=== PATIENT | male | born 1965 | race Hispanic/Latino ===

== ENCOUNTER 2017-10-14 10:40 | Inpatient (IN) | payer SELFPAY ==
--- NOTE | 2017-10-14 11:42 | RAD ---
PA AND LATERAL CHEST: Date: 10/14/17 HISTORY: Cough and congestion since Saturday. FINDINGS: There are mild increased interstitial densities within the lungs bilaterally, greater at each lung ba se, which may be related to infectious process. Mild asymmetric pulmonary edema is a differential con sideration, although is thought less likely. Cardiac silhouette and pulmonary vasculature are within normal limits. Osseous structures are intact. IMPRESSION: Increased interstitial densities bilaterally, greater at each lung base, which may be related to infe ctious process. Mild asymmetric pulmonary edema is a differential consideration. POS: ALEXEY
[2017-10-14 11:51] LABS: #Eosinphils 0.1 thou/uL (0.0-0.7); #Monocytes 0.6 thou/uL (0.11-0.59); #Neutrophils 3.8 thou/uL (1.40-6.50); %Basophils 0.1 % (0.0-1.0); %Eosinophils 1.4 % (0.0-10.0); %Lymphocytes 18.7 % (21.0-51.0); %Monocytes 10.4 % (0.0-10.0); %Neutrophils 69.5 % (42.0-75.0); Hemoglobin 13.4 g/dL (14.0-18.0); Mean Corpuscular HGB CONC 33.1 g/dL (32.0-36.0); Mean Corpuscular Hemoglobin 28.7 pg (27.0-31.0); Mean Corpuscular Volume 86.7 fl (80.0-94.0); Mean Platelet Volume 8.6 fL (7.4-10.4); Platelet Count 193 thou/uL (130-400); RBC Distribution Width 13.3 % (11.5-14.5); Red Blood Cell (RBC) Count 4.67 mill/uL (4.70-6.10); White Blood Cell (WBC) Count 5.5 thou/uL (4.8-10.8)
[2017-10-14 12:04] LABS: ALT (SGPT) 23 U/L (8-55); AST (SGOT) 44 U/L (5-34); Albumin 3.7 g/dL (3.5-5.0); Alkaline Phosphatase 73 U/L (40-150); Anion Gap 13 mmol/L (10-20); BUN (Urea Nitrogen) 22 mg/dL (8.9-20.6); Bilirubin, Total 0.5 mg/dL (0.2-1.2); Calc. Creatinine Clearance 0 mL/min (70-130); Carbon Dioxide 22 mmol/L (22-29); Chloride 103 mmol/L (98-107); Estimated GFR-MDRD Greater than 90; Globulin 4.2 g/dL (2.4-3.5); Glucose 96 mg/dL (70-105); Protein, Total 7.9 g/dL (6.0-8.3); Sodium 134 mmol/L (136-145)
[2017-10-14] MEDS ORDERED: cefTRIAXone\\ROCEPHIN 2 GM in Sodium Chloride 0.9% 100 ML IVPB ONE (12:15)
[2017-10-14] MEDS ORDERED: Azithromycin 500 MG in Sodium Chloride 0.9% 250 ML 250 ML IVPB ONE (12:30)
--- NOTE | 2017-10-14 14:07 | HP ---
PRIMARY CARE PHYSICIAN: [facility]. REASON FOR ADMISSION: Pneumonia, hypoxia, and sepsis. HISTORY OF PRESENT ILLNESS: A 52-year-old male with no significant medical history, who is sick for last 5 days. All symptoms started with upper respiratory infection with runny nose, nasal c ongestion, sore throat, and cough productive of scant amount of white sputum. The patient was trying over the counter medication without any help and that is why he saw primary care physician at the [facility], who prescribed him Phenergan with codeine and Tessalon for considering viral infect ion, but patient was not improving and day by day condition was getting worse. Last night, he was hooks ving tachypnea. He was having fever and increasing amount of cough. He was feeling very weak and th at is why he decided to go to the emergency room for evaluation. In the emergency room, this patient was tachycardic, tachypneic, and febrile. He was meeting sepsis criteria. He had chest x-ray, whic h showed bibasilar infiltration more on the bedside. The patient's oxygen saturation was 86% to 90% on room air and that is why he required oxygen and with oxygen saturation improved to 95%. At this p oint, we are admitting this patient in the hospital for further treatment. He denies any pleuritic c hest pain. He denies any UTI symptoms. He denies any hemoptysis. He denies any lower extremity jeaneth ma or calf tenderness. He denies any recent travel or sick exposure. REVIEW OF SYSTEMS: The following complete review of systems was negative, unless otherwise mentioned in the HPI or below: Constitutional: Weight loss or gain, ability to conduct usual activities. Skin: Rash, itching. Eyes: Double vision, pain. ENT/Mouth: Nose bleeding, neck stiffness, pain, tenderness. Cardiovascular: Palpitations, dyspnea on exertion, orthopnea. Respiratory: Shortness of breath, whee zing, cough, hemoptysis, fever or night sweats. Gastrointestinal: Poor appetite, abdominal pain, hea rtburn, nausea, vomiting, constipation, or diarrhea. Genitourinary: Urgency, frequency, dysuria, noc turia. Musculoskeletal: Pain, swelling. Neurologic/Psychiatric: Anxiety, depression. Allergy/Immun ologic: Skin rash, bleeding tendency. Please see my HPI for pertinent positive and negative. All other review of systems reviewed and nega tive except as mentioned in the HPI. ALLERGIES: No known drug allergy. CURRENT HOME MEDICATIONS: Phenergan with Codeine cough syrup, Tessalon Perles for cough which the juliana shital's primary care physician prescribed recently. PAST MEDICAL HISTORY: Reviewed and negative. PAST SURGICAL HISTORY: Reviewed and negative. PAST PSYCHIATRIC HISTORY: Reviewed and negative. SOCIAL HISTORY: Patient lives at home. No history of tobacco, alcohol, or illicit drug abuse. FAMILY HISTORY: No strong family history of premature coronary artery disease, stroke or cancer. EMERGENCY ROOM COURSE: Patient is given IV fluid 2 liter, DuoNeb therapy, Rocephin, and azithromycin . PHYSICAL EXAMINATION: VITAL SIGNS: On arrival, blood pressure 131/93, pulse 112, respiratory rate 32, saturation 89% on ro om air, temperature 100.3. Weight 81.6 kilograms. GENERAL: Patient is currently alert, awake, no obvious acute distress, tachycardic, tachypneic. HEENT: Head is normocephalic, atraumatic. Eyes: Pupils round, reactive to light. Extraocular musc le intact. ENT: Oropharynx within normal limit. Moist mucous membranes. No oral lesion, no pharyngeal erythem a, no exudate. NECK: Supple, no JVD, no thyromegaly, no carotid bruit, no jugular venous distention. LUNGS: Bibasilar rales noted. Air entry reduced basally. No accessory muscles of respiration in us e. CARDIAC: S1 and S2 regular, tachycardia, no murmur, no gallop, no rub. ABDOMEN: Soft, bowel sounds present, nontender, nondistended. No organomegaly, no mass, no suprapub ic tenderness. BACK: Unremarkable, no CVA tenderness. EXTREMITIES: Upper extremity passive movement of all joints are normal. Lower extremities: No yoanna a, no calf tenderness. Good peripheral pulsation. SKIN: No skin rash. HEMATOLOGICAL: No lymphadenopathy. PSYCHIATRIC: Normal affect. NEUROLOGIC: Nonfocal examination. The patient moves all 4 limbs. Plantar bilateral flexor. SIGNIFICANT LABORATORY DATA: gambling monitor showing sinus tachycardia. Chest x-ray based on my r eview, bilateral interstitial density consistent with an infectious process. CBC: WBC 5.5, hemoglob in 13.4, platelet 193. BMP: Sodium 134, potassium 4.0, chloride 103, carbon dioxide 22, anion gap 1 3, BUN 22, creatinine 0.78, glucose 96, calcium 9.0. LFT: Protein 7.9, albumin 3.7, AST 44, ALT 23, alkaline phosphatase 73. Lactic acid 0.9. ASSESSMENT AND PLAN: 1. Community-acquired bacterial pneumonia. Patient has bibasilar infiltration, bibasilar rales, fev er, and sepsis criteria. He has upper respiratory infection followed by pneumonia. Currently influe nza screen is negative. We are suspecting a postviral pneumonia with secondary to bacterial infectio n. We will treat with Rocephin 2 gram IV daily, azithromycin 500 mg IV daily. We will also give him Solu-Medrol 40 mg IV q.8 hourly x3 doses, DuoNeb therapy q.6 hourly p.r.n. basis, and Mucinex 600 mg 3 times daily. 2. Acute hypoxic respiratory failure secondary to problem #1. We will monitor oxygen saturation and wean off oxygen as needed basis. 3. Sepsis with acute organ dysfunction. This patient meeting sepsis criteria with hypoxic respirato ry failure. In this way, he has sepsis with acute organ dysfunction. We will continue with Rocephin and azithromycin as above. We will also continue with IV fluid. 4. Deep venous thrombosis prophylaxis. Lovenox 40 mg subcu daily. 5. Gastrointestinal prophylaxis, Pepcid 20 mg p.o. b.i.d. 6. Code status: The patient is FULL CODE. The patient does not have any surrogate decision maker. Disposition plan based on clinical course. We are expecting patient's stay in hospital more than 2 m idnights. Plan of care discussed with the patient in detail and answered all of his questions.
[2017-10-14] MEDS ORDERED: Ondansetron HCl/PF 4 MG/2 ML Vial IVP PRN ×2 (14:39→14:41)
[2017-10-14] MEDS ORDERED: Ondansetron ODT 4 MG TAB PO PRN ×2 (14:39→14:41)
[2017-10-14] MEDS ORDERED: Chloraseptic Spray 180 ml Bottle PO PRN (14:41)
[2017-10-14] MEDS ORDERED: Milk Of Magnesia 30 ML UDCUP PO PRN (14:41)
[2017-10-14] MEDS ORDERED: cloNIDine 0.1 MG TAB PO PRN (14:41)
[2017-10-14] MEDS ORDERED: Senokot 8.6 MG TAB PO PRN (14:41)
[2017-10-14] MEDS ORDERED: Loperamide HCl 2 MG CAP PO PRN (14:41)
[2017-10-14] MEDS ORDERED: Acetaminophen 325 MG TAB PO PRN (14:41)
[2017-10-14] MEDS ORDERED: Loratadine 10 MG TAB PO PRN (14:41)
[2017-10-14] MEDS ORDERED: Benzonatate 100 MG CAP PO PRN (14:41)
[2017-10-14] MEDS ORDERED: Zolpidem Tartrate 5 MG TAB PO PRN (14:41)
[2017-10-14] MEDS ORDERED: HYDROcodone/Acetaminophen 5/325 mg Tablet PO PRN (14:41)
[2017-10-14] MEDS ORDERED: Diabetic Tussin 200 MG/10 ML UDCUP PO PRN (14:41)
[2017-10-14] MEDS ORDERED: Mag-Al 1200 mg/1200 mg/30 ML UDCUP PO PRN (14:41)
[2017-10-14] MEDS ORDERED: Sodium Chloride 0.65% Nasal 44 ML BOT EA NARE PRN (14:41)
[2017-10-14] MEDS ORDERED: Labetalol HCl 100 MG/20 ML VIAL SLOW IVP PRN (14:41)
[2017-10-14] MEDS ORDERED: Eucerin (Mineral Oil/Petrolatum,White) 30 gm Jar TOP PRN (14:41)
[2017-10-14] MEDS ORDERED: Artificial Tear Sol 15 ML BOT EA EYE PRN (14:41)
[2017-10-14 14:54] VITALS: BMI 21.8
[2017-10-14] MEDS: Sodium Chloride 0.9% 1,000 ML IV SCH ×5 (15:31→23:29)
[2017-10-14] MEDS: guaiFENesin ER 600 MG TAB PO SCH (20:00)
[2017-10-14] MEDS: Famotidine 20 MG TAB PO SCH (20:00)
[2017-10-14 20:18] LABS: Bilirubin Negative (Negative); Blood, Urine Negative (Negative); Clarity CLEAR (Clear); Glucose, Urine (Dipstick) Negative (Negative); Leukocyte Negative (Negative); Nitrite Negative (Negative); Protein, Urine (Dipstick) Negative (Neg-Trace); Specific Gravity, Urine 1.014 (1.002-1.036); pH, Urine 6.5 (5.0-9.0)
[2017-10-14 20:20] LABS: Bacteria/HPF None Seen HPF (None Seen); Hyaline Casts/LPF 0-3 HYALINE CAST LPF (0-3 Hyaline); RBC/HPF 0-3 HPF (0-3); Squamous Epithelial None Seen HPF (0-3); WBC/HPF None Seen HPF (0-3)
[2017-10-14] MEDS ORDERED: FLU VACC QS2017-18 36 mo. & older 0.5 ML SYRINGE IM ONE (21:00)
[2017-10-15 06:04] LABS: ALT (SGPT) 19 U/L (8-55); AST (SGOT) 35 U/L (5-34); Albumin 3.2 g/dL (3.5-5.0); Alkaline Phosphatase 65 U/L (40-150); Anion Gap 10 mmol/L (10-20); BUN (Urea Nitrogen) 14 mg/dL (8.9-20.6); Bilirubin, Total 0.3 mg/dL (0.2-1.2); Calc. Creatinine Clearance 123 mL/min (70-130); Calcium 8.2 mg/dL (7.8-10.44); Carbon Dioxide 22 mmol/L (22-29); Chloride 105 mmol/L (98-107); Estimated GFR-MDRD Greater than 90; Globulin 3.7 g/dL (2.4-3.5); Glucose 131 mg/dL (70-105); Protein, Total 6.9 g/dL (6.0-8.3); Sodium 133 mmol/L (136-145)
[2017-10-15 06:18] LABS: #Lymphocytes 0.5 thou/uL (1.20-3.40); #Monocytes 0.1 thou/uL (0.11-0.59); #Neutrophils 1.6 thou/uL (1.40-6.50); %Eosinophils 0.2 % (0.0-10.0); %Lymphocytes 24.2 % (21.0-51.0); %Monocytes 2.6 % (0.0-10.0); %Neutrophils 73.1 % (42.0-75.0); Hemoglobin 11.6 g/dL (14.0-18.0); Mean Corpuscular HGB CONC 32.6 g/dL (32.0-36.0); Mean Corpuscular Hemoglobin 29.2 pg (27.0-31.0); Mean Corpuscular Volume 89.7 fl (80.0-94.0); Platelet Count 181 thou/uL (130-400); RBC Distribution Width 13.2 % (11.5-14.5); Red Blood Cell (RBC) Count 3.96 mill/uL (4.70-6.10); White Blood Cell (WBC) Count 2.2 thou/uL (4.8-10.8)
[2017-10-15] MEDS: Enoxaparin Sodium 40 MG/0.4 ML SYRINGE SC SCH (08:24)
[2017-10-15] MEDS: Famotidine 20 MG TAB PO SCH ×2 (08:26→19:54)
[2017-10-15] MEDS: guaiFENesin ER 600 MG TAB PO SCH ×2 (08:26→19:54)
[2017-10-15] MEDS: Sodium Chloride 0.9% 1,000 ML IV SCH ×2 (08:27→19:54)
--- NOTE | 2017-10-15 11:54 | PDOC.PN ---
- Subjective Encounter Start Date: 10/15/17 Encounter Start Time: 09:15 -: old records requested/rev Patient seen and examined. No new complaints. No overnight events pt feels better today, no fever - Objective Resuscitation Status: Resuscitation Status FULL:Full Resuscitation MAR Reviewed: Yes Vital Signs & Weight: Vital Signs (12 hours) Temp Pulse Resp BP Pulse Ox 10/15/17 08:00 98.0 F 91 18 137/78 92 L 10/15/17 05:00 109 H 10/15/17 04:00 98.2 F 117 H 18 117/65 95 10/15/17 00:00 98.7 F 109 H 22 H 136/87 93 L Weight Weight 143 lb 6.4 oz I&O: 10/14/17 10/15/17 10/16/17 06:59 06:59 06:59 Intake Total 1650 Balance 1650 Result Diagrams: 10/15/17 04:39 10/15/17 04:39 Phys Exam - Physical Examination Constitutional: NAD HEENT: PERRLA, moist MMs, sclera anicteric Neck: no JVD, supple Respiratory: no wheezing, no rhonchi few rales, Cardiovascular: RRR, no significant murmur, no rub Gastrointestinal: soft, non-tender, no distention, positive bowel sounds Musculoskeletal: no edema, pulses present Neurological: non-focal, normal sensation Psychiatric: normal affect, A&O x 3 Skin: no rash, normal turgor Dx/Plan (1) Acute respiratory failure with hypoxia Code(s): J96.01 - ACUTE RESPIRATORY FAILURE WITH HYPOXIA Status: Acute (2) Community acquired bacterial pneumonia Code(s): J15.9 - UNSPECIFIED BACTERIAL PNEUMONIA Status: Acute (3) Sepsis with acute organ dysfunction Code(s): A41.9 - SEPSIS, UNSPECIFIED ORGANISM; R65.20 - SEVERE SEPSIS WITHOUT SEPTIC SHOCK Status: Acute - Plan cont current plan of care, continue antibiotics, respiratory therapy * continue rocephin and azithromycin * follow culture * today wean off oxygen * ambulate as tolerated * medication reviewed as below * symptomatic treatment. Review of Systems - Review of Systems Constitutional: negative: fever, chills, sweats, weakness, malaise, other ENT: negative: Ear Pain, Ear Discharge, Nose Pain, Nose Discharge, Nose Congestion, Mouth Pain, Mouth Swelling, Throat Pain, Throat Swelling, Other Respiratory: Cough. negative: Dry, Shortness of Breath, Hemoptysis, SOB with Excertion, Pleuritic Pain, Sputum, Wheezing Cardiovascular: negative: chest pain, palpitations, orthopnea, paroxysmal nocturnal dyspnea, edema, light headedness, other Gastrointestinal: negative: Nausea, Vomiting, Abdominal Pain, Diarrhea, Constipation, Melena, Hematochezia, Other Genitourinary: negative: Dysuria, Frequency, Incontinence, Hematuria, Retention , Other Musculoskeletal: negative: Neck Pain, Shoulder Pain, Arm Pain, Back Pain, Hand Pain, Leg Pain, Foot Pain, Other Skin: negative: Rash, Lesions, Damon, Bruising, Other - Medications/Allergies Allergies/Adverse Reactions: Allergies Allergy/AdvReac Type Severity Reaction Status Date / Time No Known Allergies Allergy Verified 10/14/17 14:52 Medications: Current Medications Acetaminophen (Tylenol) 650 mg PO Q4H PRN PRN Reason: Headache/Fever or Pain Last Admin: 10/15/17 05:35 Dose: 650 mg Hydrocodone Bitart/Acetaminophen ([place] 5/325) 1 tab PO Q4H PRN PRN Reason: Moderate Pain (4-6) Al Hydroxide/Mg Hydroxide (Maalox) 30 ml PO Q6H PRN PRN Reason: Heartburn or Indigestion Albuterol/Ipratropium (Duoneb) 3 ml NEB [id number] PRN PRN Reason: SOB &/or Wheezing Artificial Tears (Tears Renewed 15ml Bottle) 0 drop EA EYE PRN PRN PRN Reason: Dry Eyes Benzonatate (Tessalon) 100 mg PO Q4H PRN PRN Reason: Cough Clonidine (Catapres) 0.1 mg PO Q4H PRN PRN Reason: Systolic BP > 180 Enoxaparin Sodium (Lovenox) 40 mg SC 0900 [facility] Last Admin: 10/15/17 08:24 Dose: 40 mg Famotidine (Pepcid) 20 mg PO BID [facility] Last Admin: 10/15/17 08:26 Dose: 20 mg Guaifenesin (Robitussin Sf) 200 mg PO Q4H PRN PRN Reason: Cough Guaifenesin (Mucinex) 600 mg PO Q12HR [facility] Last Admin: 10/15/17 08:26 Dose: 600 mg Azithromycin 500 mg/ Sodium (Chloride) 250 mls @ 250 mls/hr IVPB Q24HR@1400 [facility] Ceftriaxone Sodium 2 gm/ (Sodium Chloride) 100 mls @ 200 mls/hr IVPB Q24HR@ 1300 [facility] Sodium Chloride (Normal Saline 0.9%) 1,000 mls @ 100 mls/hr IV .Q10H [facility] Last Admin: 10/15/17 08:27 Dose: 1,000 mls Labetalol HCl (Normodyne) 10 mg SLOW IVP Q4H PRN PRN Reason: Systolic BP > 180 Loperamide HCl (Imodium) 2 mg PO PRN PRN PRN Reason: Diarrhea/Loose Stools Loratadine (Claritin) 10 mg PO DAILYPRN PRN PRN Reason: Sinus Symptoms Magnesium Hydroxide (Milk Of Magnesium) 30 ml PO DAILYPRN PRN PRN Reason: Constipation Methylprednisolone Sodium Succinate (Solu-Medrol) 40 mg IVP Q6HR [facility] Stop: 10/15/17 12:01 Last Admin: 10/15/17 05:32 Dose: 40 mg Mineral Oil/White Petrolatum (Eucerin Cream) 0 gm TOP BIDPRN PRN PRN Reason: Dry Skin Ondansetron HCl (Zofran Odt) 4 mg PO Q6H PRN PRN Reason: Nausea/Vomiting Ondansetron HCl (Zofran) 4 mg IVP Q6H PRN PRN Reason: Nausea/Vomiting Phenol (Chloraseptic [place] 180 Ml Bot) 0 ml PO PRN PRN PRN Reason: Sore Throat Senna (Senokot) 2 tab PO HSPRN PRN PRN Reason: Constipation Sodium Chloride (Flush - Normal Saline) 10 ml IVF Q12HR [facility] Last Admin: 10/15/17 08:26 Dose: Not Given Sodium Chloride (Flush - Normal Saline) 10 ml IVF PRN PRN PRN Reason: Saline Flush Sodium Chloride ([place] Nasal [place] 0.65%) 0 ml EA NARE QIDPRN PRN PRN Reason: Nasal Congestion Zolpidem Tartrate (Ambien) 5 mg PO HSPRN PRN PRN Reason: Insomnia
[2017-10-15] MEDS: cefTRIAXone\\ROCEPHIN 2 GM in Sodium Chloride 0.9% 100 ML IVPB SCH (12:24)
[2017-10-15] MEDS ORDERED: Azithromycin 500 MG in Sodium Chloride 0.9% 250 ML 250 ML IVPB SCH (14:00)
[2017-10-16] MEDS: Sodium Chloride 0.9% 1,000 ML IV SCH (05:09)
[2017-10-16 08:01] VITALS: BP 128/78; TEMP 98.1
[2017-10-16] MEDS: Famotidine 20 MG TAB PO SCH (09:14)
[2017-10-16] MEDS: guaiFENesin ER 600 MG TAB PO SCH (09:14)
[2017-10-16] MEDS: Enoxaparin Sodium 40 MG/0.4 ML SYRINGE SC SCH (09:15)
--- NOTE | 2017-10-16 10:48 | PDOC.PN ---
- Subjective Encounter Start Date: 10/16/17 Encounter Start Time: 10:00 Patient seen and examined. No new complaints. No overnight events - Objective Resuscitation Status: Resuscitation Status FULL:Full Resuscitation MAR Reviewed: Yes Vital Signs & Weight: Vital Signs (12 hours) Temp Pulse Resp BP Pulse Ox 10/16/17 08:01 98.1 F 87 16 128/78 93 L 10/16/17 08:00 98.1 F 87 16 10/16/17 04:00 97.8 F 89 16 128/77 94 L 10/16/17 02:26 98 10/16/17 01:19 97.8 F 94 16 126/70 92 L Weight Weight 143 lb 6.4 oz I&O: 10/15/17 10/16/17 10/17/17 06:59 06:59 06:59 Intake Total 1650 1027 Output Total 840 Balance 1650 187 Result Diagrams: 10/15/17 04:39 10/15/17 04:39 Phys Exam - Physical Examination Constitutional: NAD HEENT: PERRLA, moist MMs, sclera anicteric Neck: no JVD, supple Respiratory: no wheezing, no rales, no rhonchi Cardiovascular: RRR, no significant murmur, no rub Gastrointestinal: soft, non-tender, no distention, positive bowel sounds Musculoskeletal: no edema, pulses present Neurological: non-focal, normal sensation, moves all 4 limbs Psychiatric: normal affect, A&O x 3 Skin: no rash, normal turgor Dx/Plan (1) Acute respiratory failure with hypoxia Code(s): J96.01 - ACUTE RESPIRATORY FAILURE WITH HYPOXIA Status: Acute (2) Community acquired bacterial pneumonia Code(s): J15.9 - UNSPECIFIED BACTERIAL PNEUMONIA Status: Acute (3) Sepsis with acute organ dysfunction Code(s): A41.9 - SEPSIS, UNSPECIFIED ORGANISM; R65.20 - SEVERE SEPSIS WITHOUT SEPTIC SHOCK Status: Acute - Plan cont current plan of care, continue antibiotics * medication reviewed as below * symptomatic treatment * omnicef on discharge * see discharge summermateo. Review of Systems - Review of Systems Eyes: negative: Pain, Vision Change, Conjunctivae Inflammation, Eyelid Inflammation, Redness, Other ENT: negative: Ear Pain, Ear Discharge, Nose Pain, Nose Discharge, Nose Congestion, Mouth Pain, Mouth Swelling, Throat Pain, Throat Swelling, Other Respiratory: negative: Cough, Dry, Shortness of Breath, Hemoptysis, SOB with Excertion, Pleuritic Pain, Sputum, Wheezing Cardiovascular: negative: chest pain, palpitations, orthopnea, paroxysmal nocturnal dyspnea, edema, light headedness, other Gastrointestinal: negative: Nausea, Vomiting, Abdominal Pain, Diarrhea, Constipation, Melena, Hematochezia, Other Genitourinary: negative: Dysuria, Frequency, Incontinence, Hematuria, Retention , Other Musculoskeletal: negative: Neck Pain, Shoulder Pain, Arm Pain, Back Pain, Hand Pain, Leg Pain, Foot Pain, Other Skin: negative: Rash, Lesions, Damon, Bruising, Other - Medications/Allergies Allergies/Adverse Reactions: Allergies Allergy/AdvReac Type Severity Reaction Status Date / Time No Known Allergies Allergy Verified 10/14/17 14:52 Medications: Current Medications Acetaminophen (Tylenol) 650 mg PO Q4H PRN PRN Reason: Headache/Fever or Pain Last Admin: 10/15/17 05:35 Dose: 650 mg Hydrocodone Bitart/Acetaminophen ([place] 5/325) 1 tab PO Q4H PRN PRN Reason: Moderate Pain (4-6) Al Hydroxide/Mg Hydroxide (Maalox) 30 ml PO Q6H PRN PRN Reason: Heartburn or Indigestion Albuterol/Ipratropium (Duoneb) 3 ml NEB [id number] PRN PRN Reason: SOB &/or Wheezing Artificial Tears (Tears Renewed 15ml Bottle) 0 drop EA EYE PRN PRN PRN Reason: Dry Eyes Benzonatate (Tessalon) 100 mg PO Q4H PRN PRN Reason: Cough Clonidine (Catapres) 0.1 mg PO Q4H PRN PRN Reason: Systolic BP > 180 Enoxaparin Sodium (Lovenox) 40 mg SC 0900 [facility] Last Admin: 10/16/17 09:15 Dose: 40 mg Famotidine (Pepcid) 20 mg PO BID [facility] Last Admin: 10/16/17 09:14 Dose: 20 mg Guaifenesin (Robitussin Sf) 200 mg PO Q4H PRN PRN Reason: Cough Guaifenesin (Mucinex) 600 mg PO Q12HR [facility] Last Admin: 10/16/17 09:14 Dose: 600 mg Azithromycin 500 mg/ Sodium (Chloride) 250 mls @ 250 mls/hr IVPB Q24HR@1400 [facility] Last Admin: 10/15/17 15:57 Dose: 250 mls Ceftriaxone Sodium 2 gm/ (Sodium Chloride) 100 mls @ 200 mls/hr IVPB Q24HR@ 1300 [facility] Last Admin: 10/15/17 12:24 Dose: 100 mls Sodium Chloride (Normal Saline 0.9%) 1,000 mls @ 100 mls/hr IV .Q10H [facility] Last Admin: 10/16/17 05:09 Dose: 1,000 mls Labetalol HCl (Normodyne) 10 mg SLOW IVP Q4H PRN PRN Reason: Systolic BP > 180 Loperamide HCl (Imodium) 2 mg PO PRN PRN PRN Reason: Diarrhea/Loose Stools Loratadine (Claritin) 10 mg PO DAILYPRN PRN PRN Reason: Sinus Symptoms Magnesium Hydroxide (Milk Of Magnesium) 30 ml PO DAILYPRN PRN PRN Reason: Constipation Mineral Oil/White Petrolatum (Eucerin Cream) 0 gm TOP BIDPRN PRN PRN Reason: Dry Skin Ondansetron HCl (Zofran Odt) 4 mg PO Q6H PRN PRN Reason: Nausea/Vomiting Ondansetron HCl (Zofran) 4 mg IVP Q6H PRN PRN Reason: Nausea/Vomiting Phenol (Chloraseptic [place] 180 Ml Bot) 0 ml PO PRN PRN PRN Reason: Sore Throat Senna (Senokot) 2 tab PO HSPRN PRN PRN Reason: Constipation Sodium Chloride (Flush - Normal Saline) 10 ml IVF Q12HR [facility] Last Admin: 10/16/17 09:16 Dose: Not Given Sodium Chloride (Flush - Normal Saline) 10 ml IVF PRN PRN PRN Reason: Saline Flush Sodium Chloride ([place] Nasal [place] 0.65%) 0 ml EA NARE QIDPRN PRN PRN Reason: Nasal Congestion Zolpidem Tartrate (Ambien) 5 mg PO HSPRN PRN PRN Reason: Insomnia
--- NOTE | 2017-10-16 11:08 | DIS ---
DATE OF ADMISSION: 10/14/2017 DATE OF DISCHARGE: 10/16/2017 PRIMARY CARE PHYSICIAN: [facility] call admission. DISCHARGE DISPOSITION: Home. PRIMARY DISCHARGE DIAGNOSES: 1. Acute respiratory failure with hypoxia, resolved. 2. Sepsis with acute organ dysfunction, improved. 3. Community-acquired pneumonia. SECONDARY DISCHARGE DIAGNOSIS: None. PRIMARY PROCEDURE/OPERATION: None. RADIOLOGICAL INVESTIGATION: Chest x-ray showed bibasilar infiltration. SIGNIFICANT LABORATORY DATA: WBC 2.2, hemoglobin 11.6 and platelet 181. Sodium 133, potassium 4.0, BUN 14, creatinine 0.66, calcium 8.2, AST 435, ALT 19, alkaline phosphatase 65 and albumin 3.2. Urin alysis normal. Blood culture negative. Influenza negative. DISCHARGE MEDICATIONS: Omnicef 300 mg p.o. b.i.d. for 7 days. The patient is advised to continue Te ssalon and Phenergan with codeine cough syrup as needed basis. CONTRAINDICATIONS: None. CODE STATUS: FULL CODE. INPATIENT CONSULTANTS: None. ALLERGIES: No known drug allergy. DISCHARGE PLAN: Post hospital, the patient is instructed to follow up with primary care physician in 1 week and to have repeat chest x-ray for followup. HOSPITAL COURSE: A 52-year-old male who was having upper respiratory infection and subseque ntly his symptoms progressed to cough productive of scant amount of white sputum, fever, and chills. He was also having shortness of breath. He was sent to primary care physician and subsequently he w as directed to go to ER. He was hypoxic on arrival to the ER with 86% to 90% on room air. He was al so having fever. He was meeting sepsis criteria. He was admitted to medical floor. We gave him oxy gen upon admission, but subsequently by the time of discharge, he did not require any oxygen. We con tinued with Rocephin and azithromycin while in hospital. We also gave him steroid for 1 day. On dis charge, we changed to Omnicef for 7 more days. The patient is given symptomatic treatment while in h ospital. By the time of discharge, he is ambulatory, tolerating p.o. well on room air and hemodynami raymond stable. He is feeling perfectly fine and he also wants to go home today. All new medication prescriptions given to him. The patient is seen and examined at bedside today. Please see my progress note from today for furthe r detail.
[2017-10-16] MEDS: cefTRIAXone\\ROCEPHIN 2 GM in Sodium Chloride 0.9% 100 ML IVPB SCH (12:37)
== END 2017-10-16 13:28 | disposition home or self-care (01) | DRG 871 ==
LOC: ERS 10:40 → T4-B 13:09
PROVIDERS: ADMIT Internal Medicine; ATTEND Internal Medicine
DX: A41.9 Sepsis, unspecified organism (principal); J18.9 Pneumonia, unspecified organism; J96.01 Acute respiratory failure with hypoxia; R65.20 Severe sepsis without septic shock
CPT/HCPCS: 36415; 71046; 80053; 81001; 83605; 85025; 87040; 87804; 90471; 90682; 94640; 96361; 96365; 96367; A4216; G0008; J0456; J0696; J1650; J2920; J7050; J7620; Q2036

== ENCOUNTER 2017-12-23 13:19 | Inpatient (IN) | payer SELFPAY ==
[2017-12-23] MEDS ORDERED: Piperacillin/Tazobactam 3.375 GM VIAL ONE (13:50)
[2017-12-23 13:51] LABS: Hemoglobin 11.1 g/dL (14.0-18.0); Mean Corpuscular HGB CONC 34.7 g/dL (32.0-36.0); Mean Corpuscular Hemoglobin 29.1 pg (27.0-31.0); Mean Corpuscular Volume 83.9 fl (80.0-94.0); Mean Platelet Volume 9.1 fL (7.4-10.4); Platelet Count 212 thou/uL (130-400); RBC Distribution Width 13.7 % (11.5-14.5); Red Blood Cell (RBC) Count 3.81 mill/uL (4.70-6.10); White Blood Cell (WBC) Count 7.7 thou/uL (4.8-10.8)
[2017-12-23] MEDS ORDERED: Acetaminophen 500 MG TAB ONE (13:53)
[2017-12-23 13:58] LABS: Base Excess (BEa) -2.8 mEq/L (0 (+/-) 2.5); CO2 Tension 28.2 mmHg (35.0-45.0); Hematocrit-ABG 32.5 % (42.0-52.0); Hemoglobin (Hb) 9.4 g/dL (14.0-18.0); O2 Tension (PaO2) 128.4 mmHg (80.0-100.0); pH, Arterial 7.47 (7.35-7.45)
[2017-12-23 13:59] LABS: Analyzer IN Cardio ER; Calcium, Ionized 1.1 mmol/L (1.12-1.30); Puncture Site L.R.
[2017-12-23 14:01] LABS: ALT (SGPT) 38 U/L (8-55); AST (SGOT) 60 U/L (5-34); Albumin 2.9 g/dL (3.5-5.0); Alkaline Phosphatase 58 U/L (40-150); Anion Gap 14 mmol/L (10-20); BUN (Urea Nitrogen) 22 mg/dL (8.9-20.6); Bilirubin, Total 0.6 mg/dL (0.2-1.2); Calc. Creatinine Clearance 0 mL/min (70-130); Calcium 8.6 mg/dL (7.8-10.44); Carbon Dioxide 21 mmol/L (22-29); Chloride 93 mmol/L (98-107); Estimated GFR-MDRD 84; Globulin 3.8 g/dL (2.4-3.5); Glucose 115 mg/dL (70-105); Lipase 123 U/L (8-78); Protein, Total 6.7 g/dL (6.0-8.3); Sodium 124 mmol/L (136-145)
[2017-12-23 14:23] LABS: Lymphocytes 3 % (21-51); MDiff Complete? YES; Monocytes 2 % (0-10); Neutrophil 95 % (42-75); PLT Morphology Comment Appears Adequate
--- NOTE | 2017-12-23 15:17 | RAD ---
AP VIEW OF THE CHEST: INDICATION: History of cough and diffuse hypoxemia. FINDINGS: There are prominent parenchymal opacities involving the left mid and left lower lung. There is also right basilar airspace opacity. This appears more severe than on comparison exam. No pleural effusi on or pneumothorax. cardiomediastinal silhouette is within normal limits. IMPRESSION: Bibasilar airspace opacities may reflect bilateral pneumonia. Recommend correlation with the clinica l exam. Radiographic followup to resolution as needed. POS: ALEXEY
--- NOTE | 2017-12-23 15:43 | HP ---
PRIMARY CARE PHYSICIAN: [facility] Call Admission. REASON FOR ADMISSION: Acute hypoxic respiratory failure, pneumonia, sepsis. HISTORY OF PRESENT ILLNESS: A 52-year-old male, who speaks Serbian only. Family member pre sent at bedside, who came to emergency room for increasing shortness of breath for the last one week. The patient was having cough and scant amount of sputum during this period. He started having feve r for the last few days. Initially, he was not able to recognize fever as well, but he was becoming more and more short of breath. He was not able to talk in full sentences. He was becoming more and more weak and tired. He had increasing amount of sputum as well. When he arrived to the emergency r oom, his saturation was in the upper 40s with oxygen saturation improved to 74. Subsequently, he req uired BiPAP. He was tachycardic with a pulse in 150s and he was febrile with temperature 102.2. The patient does report chest discomfort when he takes deep breath. In the emergency room, patient was found with bibasilar pneumonia. The patient is being admitted to [facility] for hypoxic respiratory failur e. The patient was admitted back in 10/2017, at that time, he also had pneumonia. REVIEW OF SYSTEMS: The following complete review of systems was negative, unless otherwise mentioned in the HPI or below: Constitutional: Weight loss or gain, ability to conduct usual activities. Skin: Rash, itching. Eyes: Double vision, pain. ENT/Mouth: Nose bleeding, neck stiffness, pain, tenderness. Cardiovascular: Palpitations, dyspnea on exertion, orthopnea. Respiratory: Shortness of breath, wheezing, cough, hemoptysis, fever or night sweats. Gastrointestinal: Poor appetite, abdominal pain, heartburn, nausea, vomiting, constipation, or diarr hea. Genitourinary: Urgency, frequency, dysuria, nocturia. Musculoskeletal: Pain, swelling. Neurologic/Psychiatric: Anxiety, depression. Allergy/Immunologic: Skin rash, bleeding tendency. Please see my HPI for pertinent positive and negative. All other review of systems reviewed and nega tive except as mentioned in the HPI. ALLERGIES: No known drug allergies. CURRENT HOME MEDICATIONS: The patient is not taking any medication at this point. PAST MEDICAL HISTORY: Reviewed and negative. PAST SURGICAL HISTORY: Reviewed and negative. PAST PSYCHIATRIC HISTORY: Reviewed and negative. SOCIAL HISTORY: Patient lives at home. No history of tobacco, alcohol, or illicit drug abuse. FAMILY HISTORY: No strong family history of premature coronary artery disease, stroke or cancer. EMERGENCY ROOM COURSE: Patient is given levofloxacin 750 mg, Zosyn 3.375, Tylenol 1 g, and IV fluid 2 liter. PHYSICAL EXAMINATION: VITAL SIGNS: On arrival, blood pressure 130/79, pulse 150, respiratory rate 35, saturation 74% on ro om air, weight 68 kilograms, and temperature 102.2. GENERAL: The patient is currently tachycardic, febrile, tachypneic on BiPAP. HEENT: Head: Normocephalic, atraumatic. Eyes: Pupils round, reactive to light. Extraocular muscl e intact. ENT: Oropharynx within normal limits. Moist mucous membranes. No oral lesion, no pharyngeal erythe ma, no exudate. NECK: Supple, no JVD, no thyromegaly, no carotid bruit. LUNGS: Bilateral rales noted. Few end expiratory wheezing heard, shallow breathing. CARDIAC: S1 and S2 regular, tachycardia, no murmur, no gallop, no rub. ABDOMEN: Soft, bowel sounds present, nontender, nondistended. No organomegaly, no mass, no suprapub ic tenderness. BACK: Unremarkable, no CVA tenderness. EXTREMITIES: Upper extremity passive movement of all joints are normal. Lower extremities: No yoanna a. Good peripheral pulsation, no calf tenderness. SKIN: No skin rash. HEMATOLOGICAL: No lymphadenopathy. PSYCHIATRIC: Normal affect. NEUROLOGIC: The patient is alert, oriented x3. Cranial nerves II-XII intact. Motor and sensation w ithin normal limits. No focal neurological deficit noted. SIGNIFICANT LABS: 1. EKG showing sinus tachycardia, premature ventricular complexes. Chest x-ray showing bibasilar in filtration. 2. CBC: WBC 7.7, hemoglobin 11.1, platelet 212 with left shift. ABG: pH 7.47, CO2 of 28.2, bicarb jose angel 20.0, O2 is 128.4, and saturation 98.8 on BiPAP. 3. BMP: Sodium 124, potassium 4.0, chloride 93, carbon dioxide 21, anion gap 14, BUN 22, creatinine 0.95, glucose 115, calcium 8.6. 4. LFT: AST 60, ALT 38, alkaline phosphatase 58, albumin 2.9, lipase 123. Lactic acid 4.8. ASSESSMENT AND PLAN: 1. Acute hypoxic respiratory failure secondary to pneumonia. 2. Bibasilar community-acquired pneumonia, likely bacterial. 3. Sepsis with acute organ dysfunction. 4. Lactic acidosis due to sepsis. 5. Hyponatremia, hypochloremia, likely due to dehydration. 6. Hypoalbuminemia. 7. Anemia, normocytic, normochromic. 8. History of pneumonia in 10/2017. 9. PLAN: Admission to IMCU, BiPAP, Pulmonary consultation. Start empiric antibiotic therapy with c efepime, Levaquin, and vancomycin. Respiratory virus panel check and IV fluid, Solu-Medrol 40 mg IV q.6 hourly. Repeat labs tomorrow. We will also check HIV, hepatitis profile. 10. Deep venous thrombosis prophylaxis. Lovenox 40 mg subcu daily. 11. Gastrointestinal prophylaxis, Pepcid 20 mg IV b.i.d. 12. CODE STATUS: The patient is FULL CODE. Patient does not have any surrogate decision maker. 13. Disposition plan based on clinical course. We are expecting patient's stay in hospital more guzman n 2 midnights. Plan of care discussed with the patient in detail and family member at bedside in the emergency room as well.
--- NOTE | 2017-12-23 16:29 | CON ---
DATE OF CONSULTATION: 12/23/2017 This encompassed 45 minutes critical care time spent with the patient in the ER between 2:45 and 3:30 p.m. REASON FOR CONSULTATION: Pneumonia and acute hypoxic respiratory failure. HISTORY OF PRESENT ILLNESS: Mr. Land is a 52-year-old Uzbek speaking only male who is brought to the emergency room earlier today by his . He has been sick since this past Saturday. She say s, he had profound hiccups that day. Since that time, he has had a cough with productive white sputu m. In the ER, he was found to be in severe respiratory distress with a respiratory rate in the 50s. He was found to have a fever of 102.7. He was subsequently placed on BiPAP. He was given 2 liters of normal saline prior to my arrival in the emergency room. I was able to take him off BiPAP without much problem and put him on nasal cannula. I was able to speak to him through translation services. He denies any history of pulmonary problems in the past other than a pneumonia, which required admiss ion in early 10/2017. He denies any exposure to noxious substances and has no pets in the house. He does not smoke. PAST MEDICAL HISTORY: Previous pneumonia. PAST SURGICAL HISTORY: None. PSYCHIATRIC HISTORY: Unremarkable. SOCIAL HISTORY: Nonsmoker, does not consume alcohol, does not use illicit drugs. He works in the [employer]. FAMILY MEDICAL HISTORY: Unremarkable. ALLERGIES: None. MEDICATIONS PRIOR TO ADMISSION: None, but he was given Rocephin and Zithromax during his last hospit alization. REVIEW OF SYSTEMS: Twelve point review of systems otherwise negative. PHYSICAL EXAMINATION: VITAL SIGNS: Temperature 102, pulse 120, respiratory rate 18, O2 saturation 98% on 4 liters, blood p ressure 128/70. GENERAL: He is awake, alert, conversant, and does not appear to be in distress. HEENT: Pupils are reactive. Sclerae anicteric. Oropharynx clear. NECK: Without adenopathy, JVD, or bruits. CARDIOVASCULAR: S1, S2, tachycardic. There is no audible murmur, rub, or gallop. LUNGS: He has inspiratory crackles primarily heard posteriorly at the bases. ABDOMEN: Soft, nontender, nondistended. EXTREMITIES: No clubbing, cyanosis, or edema. NEUROMUSCULAR: Nonfocal. SKIN: Shows no rashes, bruising, or jaundice. LABORATORY DATA AND X-RAY FINDINGS: Sodium 124, potassium 4, chloride 93, CO2 21, BUN 22, creatinine 0.9, glucose 115. Lactate 4.8, AST 60, ALT 38, albumin 2.9. Lipase 123. White blood cell count 7. 7, hematocrit 32, platelet count 212, 95% neutrophils, 3% lymphocytes. ABG: pH 7.47, pCO2 28, pO2 1 28. His x-ray shows bilateral infiltrative changes primarily at the right base. ASSESSMENT: This is a 52-year-old male presenting with bilateral infiltrative changes, worse on the right. Almost identical presentation to the findings noted in early October when he was admitted with pneumonia. Differential diagnosis in this case includes pneumonia, hospital-acquired pneumonia, hype rsensitivity pneumonitis, atypical infection, or congestive heart failure from myocarditis of some so rt. 1. Acute hypoxic respiratory failure. 2. Elevated lipase. 3. Elevated BUN. 4. Hyponatremia. PLAN: 1. The patient needs to be admitted to the hospital for the purpose of IV antibiotics and IV fluids. I agree with the workup for HIV. I will check an echocardiogram to make sure we are not dealing wi th overt heart failure. I would definitely not use the same antibiotics that were used during the hospitalization. 2. Judicious hydration.
[2017-12-23] MEDS ORDERED: Zolpidem Tartrate 5 MG TAB PO PRN (16:48)
[2017-12-23] MEDS ORDERED: Senokot 8.6 MG TAB PO PRN (16:48)
[2017-12-23] MEDS ORDERED: Loperamide HCl 2 MG CAP PO PRN (16:48)
[2017-12-23] MEDS ORDERED: Ondansetron ODT 4 MG TAB PO PRN (16:48)
[2017-12-23] MEDS ORDERED: Mag-Al 1200 mg/1200 mg/30 ML UDCUP PO PRN (16:48)
[2017-12-23] MEDS ORDERED: HYDROcodone/Acetaminophen 5/325 mg Tablet PO PRN (16:48)
[2017-12-23] MEDS ORDERED: Milk Of Magnesia 30 ML UDCUP PO PRN (16:48)
[2017-12-23] MEDS ORDERED: Ondansetron HCl/PF 4 MG/2 ML Vial IVP PRN (16:48)
[2017-12-23] MEDS ORDERED: Vancomycin HCl 1.5 GM in Sodium Chloride 0.9% 250 ML 300 ML IVPB SCH (17:15)
[2017-12-23 17:37] LABS: HBCM Index 0.06 S/CO (0-0.79); Hep A IgM AB Non-Reactive (NonReactive); Hep A IgM S/CO 0.14 S/CO (0-0.79); Hep B Surf Ag Non-Reactive S/CO (NonReactive); Hep C IgG Ab Non-Reactive (NonReactive); Hepatitis B Core IGM Abs Non-Reactive (NonReactive)
[2017-12-23] MEDS: Sodium Chloride 0.9% 1,000 ML IV SCH (17:39)
[2017-12-23 18:02] LABS: Lactic Acid 1.4 mmol/L (0.5-2.2)
[2017-12-23 18:42] LABS: HIV (1/2) Antibody/Antigen Reflxed Confirmation (NonReactive); HIV 1/2 INDEX 540.26 S/CO (<1.00)
[2017-12-23] MEDS: Piperacillin/Tazobactam 3.375 GM in Sodium Chloride 0.9% 100 ML IVPB SCH (19:34)
[2017-12-23 20:07] LABS: Bilirubin Negative (Negative); Blood, Urine Small (Negative); Clarity CLEAR (Clear); Glucose, Urine (Dipstick) Negative (Negative); Leukocyte Negative (Negative); Nitrite Negative (Negative); Protein, Urine (Dipstick) Negative (Neg-Trace); Specific Gravity, Urine 1.008 (1.002-1.036); Urobilinogen 0.2 mg/dL (0.2-1.0); pH, Urine 6.5 (5.0-9.0)
[2017-12-23 20:12] LABS: Bacteria/HPF None Seen HPF (None Seen); Hyaline Casts/LPF 0-3 HYALINE CAST LPF (0-3 Hyaline); Squamous Epithelial 0-3 HPF (0-3); WBC/HPF 0-3 HPF (0-3)
[2017-12-23 20:17] LABS: Amphetamine Not Detected (NotDetected); Barbiturates Screen Not Detected (NotDetected); Benzodiazepine Screen Not Detected (NotDetected); Cocaine Metabolite Screen Not Detected (NotDetected); Medtox Control Line Valid? VALID (VALID); Medtox Reader # READER 1; Methadone Not Detected (NotDetected); Methamphetamine Not Detected (NotDetected); Opiate Screen Not Detected (NotDetected); Oxycodone Screen Not Detected (NotDetected); Phencyclidine (PCP) Not Detected (NotDetected); THC/Cannabinoid Screen Not Detected (NotDetected); Tricyclic Screen Not Detected (NotDetected)
[2017-12-23] MEDS: guaiFENesin ER 600 MG TAB PO SCH (20:23)
[2017-12-23] MEDS: Famotidine/PF 20 mg/2ml Vial SLOW IVP SCH (20:23)
[2017-12-23 20:24] LABS: Legionella Urinary Ag Negative (Negative); Strep pneumo Urine Ag NEGATIVE (NEGATIVE)
[2017-12-24] MEDS: Piperacillin/Tazobactam 3.375 GM in Sodium Chloride 0.9% 100 ML IVPB SCH ×4 (00:40→18:00)
[2017-12-24] MEDS: Acetaminophen 325 MG TAB PO PRN (00:49)
[2017-12-24] MEDS: Sodium Chloride 0.9% 1,000 ML IV SCH ×4 (02:40→21:12)
[2017-12-24 02:49] LABS: #Lymphocytes 0.2 thou/uL (1.20-3.40); #Monocytes 0.1 thou/uL (0.11-0.59); #Neutrophils 4.2 thou/uL (1.40-6.50); %Lymphocytes 3.6 % (21.0-51.0); %Monocytes 1.9 % (0.0-10.0); %Neutrophils 94.4 % (42.0-75.0); Hemoglobin 9.1 g/dL (14.0-18.0); Mean Corpuscular HGB CONC 34.1 g/dL (32.0-36.0); Mean Corpuscular Hemoglobin 28.8 pg (27.0-31.0); Mean Corpuscular Volume 84.4 fl (80.0-94.0); Mean Platelet Volume 8.9 fL (7.4-10.4); Platelet Count 181 thou/uL (130-400); RBC Distribution Width 13.8 % (11.5-14.5); Red Blood Cell (RBC) Count 3.14 mill/uL (4.70-6.10); White Blood Cell (WBC) Count 4.5 thou/uL (4.8-10.8)
[2017-12-24 03:12] LABS: Lactic Acid 1.6 mmol/L (0.5-2.2)
[2017-12-24 03:25] LABS: ALT (SGPT) 33 U/L (8-55); AST (SGOT) 46 U/L (5-34); Albumin 2.3 g/dL (3.5-5.0); Alkaline Phosphatase 43 U/L (40-150); Anion Gap 12 mmol/L (10-20); BUN (Urea Nitrogen) 15 mg/dL (8.9-20.6); Bilirubin, Total 0.6 mg/dL (0.2-1.2); Calc. Creatinine Clearance 103 mL/min (70-130); Calcium 7.3 mg/dL (7.8-10.44); Carbon Dioxide 18 mmol/L (22-29); Chloride 104 mmol/L (98-107); Estimated GFR-MDRD Greater than 90; Glucose 134 mg/dL (70-105); Lipase 80 U/L (8-78); Potassium 3.4 mmol/L (3.5-5.1); Protein, Total 5.3 g/dL (6.0-8.3); Sodium 131 mmol/L (136-145)
[2017-12-24] MEDS ORDERED: Vancomycin HCl 1 GM in Premix Bag 1 BAG IVPB SCH (06:00)
[2017-12-24] MEDS ORDERED: DEXTROSE 5% IVPB SCH ×2 (09:00→18:00)
[2017-12-24] MEDS ORDERED: Enoxaparin Sodium 40 MG/0.4 ML SYRINGE SC SCH (09:00)
[2017-12-24] MEDS ORDERED: WATER IVPB SCH ×2 (09:00→18:00)
[2017-12-24] MEDS ORDERED: TRIMETHOPRIM IVPB SCH ×2 (09:00→18:00)
[2017-12-24] MEDS ORDERED: SULFAMETHOXAZOLE IVPB SCH ×2 (09:00→18:00)
--- NOTE | 2017-12-24 09:10 | PRG ---
DATE OF SERVICE: 12/24/2017 The patient says he feels better. Nurses are concerned because he seems more somnolent to them. PHYSICAL EXAMINATION: VITAL SIGNS: Temperature is 97.6 with a T-max of 102 last night, pulse 96, respirations 16, O2 sat 1 00% on 3 liters, blood pressure 115/74. HEENT: Unremarkable. NECK: No adenopathy or JVD. LUNGS: Diffuse crackles bilaterally. CARDIOVASCULAR: S1, S2 regular. ABDOMEN: Soft. EXTREMITIES: No edema. His HIV test came back positive on the screen. Sodium is 131, potassium 3.4, chloride 104, CO2 18, B UN 15, creatinine 0.7, glucose 134. White blood count 4.5, hematocrit 26.5, platelet count 181. ASSESSMENT: 1. 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 That would explain recurrence of symptoms and th e diffuse infiltrates on the x-ray. 2. New diagnosis of human immunodeficiency virus. 3. Acute hypoxic respiratory failure. PLAN: 1. Agree with starting Bactrim. 2. Continue the steroids. 3. Can stop the Levaquin and can likely consolidate the antibiotics further over the next couple of days. 4. Check LDH level. 5. Induce sputum for pneumocystis stain. Consider bronchoscopy if the diagnosis is felt to be in qu estion otherwise. 6. Suggest Infectious Disease consult with Dr. Puri.
--- NOTE | 2017-12-24 09:32 | RAD ---
PORTABLE AP CHEST: Date: 12/24/17 HISTORY: On ventilator. Follow-up evaluation. COMPARISON: 12/23/17. FINDINGS: There are increased interstitial and alveolar opacities again seen within the lungs bilaterally, grea ter involving the left lung compared to right. Cardiac silhouette is within normal limits. Pulmonary vasculature is at the upper limits of normal. There has been no interval change when compared to the prior exam. IMPRESSION: Bilateral air space opacity, greater on the left, which again may reflect pneumonia or less likely as ymmetric pulmonary edema. Continued follow-up is recommended. POS: OFF
[2017-12-24] MEDS: Enoxaparin Sodium 40 MG/0.4 ML SYRINGE SC SCH (10:36)
[2017-12-24] MEDS: Famotidine/PF 20 mg/2ml Vial SLOW IVP SCH ×3 (10:37→21:01)
[2017-12-24] MEDS: Multivitamin W/ Minerals 1 TAB PO SCH (10:37)
[2017-12-24] MEDS: guaiFENesin ER 600 MG TAB PO SCH ×2 (10:37→21:01)
--- NOTE | 2017-12-24 12:51 | PDOC.PN ---
- Subjective Encounter Start Date: 12/24/17 Encounter Start Time: 09:15 -: old records requested/rev Patient seen and examined for pneumonia. last night pt was hypotensive and febrille - Objective Resuscitation Status: Resuscitation Status FULL:Full Resuscitation MAR Reviewed: Yes Vital Signs & Weight: Vital Signs (12 hours) Temp Pulse Resp BP Pulse Ox 12/24/17 12:15 104 H 16 12/24/17 11:08 98.0 F 102 H 20 115/71 96 12/24/17 08:03 96 16 12/24/17 08:00 98 F 96 16 100 12/24/17 07:18 97.6 F 90 24 H 115/74 100 12/24/17 03:48 98.1 F 103 H 26 H 92/64 100 Weight Weight 134 lb 14.4 oz I&O: 12/23/17 12/24/17 12/25/17 06:59 06:59 06:59 Intake Total 1850 Output Total 1200 Balance 650 Result Diagrams: 12/24/17 02:35 12/24/17 02:35 Additional Labs: Accuchecks 12/24/17 02:47 POC Glucose 138 H Radiology Reviewed by me: Yes (chest xray) EKG Reviewed by me: Yes (sinus tachycardia) Phys Exam - Physical Examination Constitutional: NAD HEENT: PERRLA, moist MMs, sclera anicteric Neck: no JVD, supple Respiratory: no wheezing, no rhonchi few scattered rales Cardiovascular: RRR, no significant murmur, no rub Gastrointestinal: soft, non-tender, no distention, positive bowel sounds Musculoskeletal: no edema, pulses present Neurological: non-focal, normal sensation, moves all 4 limbs Lymphatic: no nodes Psychiatric: normal affect, A&O x 3 Skin: no rash, normal turgor Dx/Plan (1) Acute respiratory failure with hypoxia Code(s): J96.01 - ACUTE RESPIRATORY FAILURE WITH HYPOXIA Status: Acute (2) Community acquired bacterial pneumonia Code(s): J15.9 - UNSPECIFIED BACTERIAL PNEUMONIA Status: Acute (3) HIV (human immunodeficiency virus infection) Status: Acute (4) Hypoalbuminemia Code(s): E88.09 - OTH DISORDERS OF PLASMA-PROTEIN METABOLISM, NEC Status: Acute (5) Hypokalemia Code(s): E87.6 - HYPOKALEMIA Status: Acute (6) Hyponatremia Code(s): E87.1 - HYPO-OSMOLALITY AND HYPONATREMIA Status: Acute (7) Sepsis with acute organ dysfunction Code(s): A41.9 - SEPSIS, UNSPECIFIED ORGANISM; R65.20 - SEVERE SEPSIS WITHOUT SEPTIC SHOCK Status: Acute (8) Anemia with chronic illness Code(s): D63.8 - ANEMIA IN OTHER CHRONIC DISEASES CLASSIFIED ELSEWHERE Status : Chronic (9) Protein-calorie malnutrition, moderate Code(s): E44.0 - MODERATE PROTEIN-CALORIE MALNUTRITION Status: Chronic - Plan cont current plan of care, continue antibiotics, respiratory therapy * start bactrim 300 mg iv q 8 hourly for suspected pcp pneumonia * continue iv solumedrol * continue vancomycin and zosyn * consult ID * medication reviewed as below * symptomatic treatment * continue nutritional support * monitor oxygen level. Review of Systems - Review of Systems Constitutional: negative: fever, chills, sweats, weakness, malaise, other Eyes: negative: Pain, Vision Change, Conjunctivae Inflammation, Eyelid Inflammation, Redness, Other ENT: negative: Ear Pain, Ear Discharge, Nose Pain, Nose Discharge, Nose Congestion, Mouth Pain, Mouth Swelling, Throat Pain, Throat Swelling, Other Respiratory: Cough, Shortness of Breath, SOB with Excertion. negative: Dry, Hemoptysis, Pleuritic Pain, Sputum, Wheezing Cardiovascular: negative: chest pain, palpitations, orthopnea, paroxysmal nocturnal dyspnea, edema, light headedness, other Gastrointestinal: negative: Nausea, Vomiting, Abdominal Pain, Diarrhea, Constipation, Melena, Hematochezia, Other Genitourinary: negative: Dysuria, Frequency, Incontinence, Hematuria, Retention , Other Musculoskeletal: negative: Neck Pain, Shoulder Pain, Arm Pain, Back Pain, Hand Pain, Leg Pain, Foot Pain, Other Skin: negative: Rash, Lesions, Damon, Bruising, Other - Medications/Allergies Allergies/Adverse Reactions: Allergies Allergy/AdvReac Type Severity Reaction Status Date / Time No Known Allergies Allergy Verified 10/14/17 14:52 Medications: Current Medications Acetaminophen (Tylenol) 650 mg PO Q4H PRN PRN Reason: Headache/Fever or Pain Last Admin: 12/24/17 00:49 Dose: 650 mg Hydrocodone Bitart/Acetaminophen ([place] 5/325) 1 tab PO Q4H PRN PRN Reason: Moderate Pain (4-6) Al Hydroxide/Mg Hydroxide (Maalox) 30 ml PO Q6H PRN PRN Reason: Heartburn or Indigestion Albuterol/Ipratropium (Duoneb) 3 ml NEB [id number] [facility] Last Admin: 12/24/17 12:15 Dose: 3 ml Enoxaparin Sodium (Lovenox) 40 mg SC 0900 [facility] Last Admin: 12/24/17 10:36 Dose: 40 mg Famotidine (Pepcid) 20 mg SLOW IVP Q12HR [facility] Last Admin: 12/24/17 10:39 Dose: 20 mg Guaifenesin (Mucinex) 600 mg PO Q12HR [facility] Last Admin: 12/24/17 10:37 Dose: 600 mg Piperacillin Sod/Tazobactam (Sod 3.375 gm/ Sodium Chloride) 100 mls @ 200 mls/ hr IVPB Q6HR [facility] Last Admin: 12/24/17 10:37 Dose: 100 mls Vancomycin HCl 1 gm/ Device 200 mls @ 200 mls/hr IVPB 0600,1800 [facility] Last Admin: 12/24/17 05:31 Dose: 200 mls Trimethoprim/Sulfamethoxazole (300 mg/ Dextrose/Water) 500 mls @ 333.333 mls/ hr IVPB 0100,0900,1700 [facility] Last Admin: 12/24/17 10:36 Dose: 500 mls Sodium Chloride (Normal Saline 0.9%) 1,000 mls @ 100 mls/hr IV .Q10H [facility] Last Admin: 12/24/17 10:38 Dose: 1,000 mls Iron/Minerals/Multivitamins (Theragran M) 1 tab PO DAILY [facility] Last Admin: 12/24/17 10:37 Dose: 1 tab Loperamide HCl (Imodium) 2 mg PO PRN PRN PRN Reason: Diarrhea/Loose Stools Magnesium Hydroxide (Milk Of Magnesium) 30 ml PO DAILYPRN PRN PRN Reason: Constipation Methylprednisolone Sodium Succinate (Solu-Medrol) 40 mg IVP Q6HR [facility] Last Admin: 12/24/17 10:36 Dose: 40 mg Miscellaneous Medication (Pharmacy To Dose) 1 each IVPB PRN PRN PRN Reason: Pharmacy to dose Ondansetron HCl (Zofran Odt) 4 mg PO Q6H PRN PRN Reason: Nausea/Vomiting Ondansetron HCl (Zofran) 4 mg IVP Q6H PRN PRN Reason: Nausea/Vomiting Pantoprazole Sodium (Protonix) 40 mg PO DAILY ANGELICA Last Admin: 12/24/17 10:36 Dose: 40 mg Senna (Senokot) 2 tab PO HSPRN PRN PRN Reason: Constipation Zolpidem Tartrate (Ambien) 5 mg PO HSPRN PRN PRN Reason: Insomnia
--- NOTE | 2017-12-24 14:11 | CON ---
DATE OF CONSULTATION: 12/24/2017 REASON FOR CONSULTATION: Pneumonia. HISTORY OF PRESENT ILLNESS: A 52-year-old initially admitted in 10/2017 with no past medical history and respiratory symptoms which included nasal congestion, sore throat, and cough, somewhat productiv e of whitish sputum. The patient had been seen previously in the [facility] and was given P henergan with codeine, Tessalon without improvement. On arrival, he was tachypneic and his temperatu re was 100.3, O2 sat was 89% room air, blood pressure 130/90, pulse 112. Pertinent findings on the p hysical exam bibasilar inspiratory crackles and initial labs white cell count 5.5, hemoglobin 13, jaden telets 193 and creatinine 0.78. Lactic acid 0.9. He was diagnosed with community-acquired pneumonia and managed with the usual antimicrobial regimen and discharged on Omnicef for 7 days. After discha rge, the patient persisted with cough and worsening dyspnea. Therefore, he was admitted this time an d HIV serology were submitted, which was positive or preliminary positive results. He has been start ed on Bactrim. The patient is awake. He denies headaches, no visual symptoms, sore throat, odynopha vaibhav, dysphagia, no chest pain, no back pain, no abdominal pain or diarrhea. Has lost about 10 pounds over the past few months, and now he acknowledges that his cough has been going on for at least 4 mo nths now. PAST MEDICAL HISTORY: Otherwise, negative before this recent admission. PAST SURGICAL HISTORY: Negative. SOCIAL HISTORY: He has been living in the area for 10 years. He has some children in [place]. His f gilday lives in [place]. He works in town in a restaurant. Never a smoker, no alcoholic beverage use . No drug use. FAMILY HISTORY: Noncontributory. PHYSICAL EXAMINATION: VITAL SIGNS: T-max 101.9, currently 98; blood pressure 115/71; pulse 96-101; respirations 16-24, now about 24; O2 sat 96% on 3 liters nasal cannula. SKIN: With peripheral IV access. The patient is voiding spontaneously. Tachypneic at rest. Nasal cannula O2, chronically ill appearing. No skin lesions, no lymphadenopathy. HEENT: Ocular movements conjugate. Somewhat pale conjunctivae. Oral cavity with no evidence of can didiasis. Numerous teeth in place with quite a bit of decay and gum disease. NECK: Supple, no jugular venous distention or carotid bruits. HEART: S1, S2, regular rate. No S3 or S4. ABDOMEN: Soft, not distended or tender. No ascites. No bladder distention. EXTREMITIES: No joint inflammatory activity. Pulses 1+ in dorsalis pedis. NEUROLOGIC: Plantar responses are flexure. His cognitive function appears to be intact. LABORATORY DATA: White cell count was initially 7.7, hemoglobin 11, platelets 212. The lymphocyte p ercentage was only 3 with severe lymphocytopenia. Blood gas shows pH 7.47, pCO2 of 28, pO2 of 128, s odium 129, creatinine 0.95, AST 60, ALT 38, alkaline phosphatase 58, albumin 2.9, globulin 3.8, lipas e 123. Urinalysis unremarkable. Toxicology negative and preliminary HIV serology pending confirmati on positive. Legionella haemophilus strep pneumonia antigen negative, hepatitis serology negative. Chest x-ray with diffuse bilateral air space opacity. ASSESSMENT: Chronic pneumonitis with hypoxemia in a preliminarily HIV seropositive status patient wi th severe lymphocytopenia. DISCUSSION: The most likely scenario is pneumocystis pneumonia with now disclosed HIV infection. silverio HIV viral load, genotype C4 cell count has been ordered already. Submit CMV DNA PCR, histoplasma antigen in urine and cryptococcus antigen in serum. Submit pneumocystis PCR and sputum and Fungitel l assay. Adjust dose of Bactrim to about 2.5 mg/kg q.6 hours. Continue Solu-Medrol, discontinue all other antimicrobials. The patient still has risk for further decompensation since his disease has b een going for a long time. He may develop pneumothorax, further pulmonary infiltrates may end up int ubated; hopefully, things will turn around quickly. Avoid the antiretroviral therapy for the time be ing until things are under better control to prevent immune reconstitution syndrome and decompensatio n of his respiratory status.
[2017-12-25] MEDS: SULFAMETHOXAZOLE IVPB SCH ×5 (00:26→23:44)
[2017-12-25] MEDS: DEXTROSE 5% IVPB SCH ×5 (00:26→23:44)
[2017-12-25] MEDS: TRIMETHOPRIM IVPB SCH ×5 (00:26→23:44)
[2017-12-25] MEDS: Sodium Chloride 0.9% 1,000 ML IV SCH ×2 (00:26→17:52)
[2017-12-25] MEDS: WATER IVPB SCH ×5 (00:26→23:44)
[2017-12-25] MEDS: Piperacillin/Tazobactam 3.375 GM in Sodium Chloride 0.9% 100 ML IVPB SCH ×5 (00:27→23:44)
[2017-12-25 04:55] LABS: Vancomycin, Trough 5.2 ug/mL
--- NOTE | 2017-12-25 08:23 | PRG ---
DATE OF SERVICE: 12/25/2017 He is sitting up in a chair, no acute events overnight. PHYSICAL EXAMINATION: VITAL SIGNS: His temperature is 98.1 with a T-max of 98.2 yesterday, pulse 113, respirations in the high 20s to low 30s, O2 sat 99% on 3 liters, blood pressure 114/65. HEENT: Unremarkable. NECK: No JVD. LUNGS: He has diffuse mild inspiratory crackles. CARDIAC: S1 and S2 tachycardic. ABDOMEN: Soft, nontender. EXTREMITIES: No edema. LABORATORY DATA: His LDH level was 1207. He did not have any other labs today that I can see. His confirmatory HIV test is pending. ASSESSMENT: 1. This is likely pneumocystis jiroveci pneumonia. 2. Human immunodeficiency virus. 3. Acute hypoxic respiratory failure with bilateral pneumonia. PLAN: Continue the Bactrim and IV steroids. Awaiting results of the pneumocystis smear.
[2017-12-25] MEDS: guaiFENesin ER 600 MG TAB PO SCH ×2 (08:56→20:10)
[2017-12-25] MEDS: Enoxaparin Sodium 40 MG/0.4 ML SYRINGE SC SCH (08:56)
[2017-12-25] MEDS: Multivitamin W/ Minerals 1 TAB PO SCH (08:56)
[2017-12-25 11:47] LABS: Ref Lab Test Ordered PNEUMOCYSTIS PCR
[2017-12-25] MEDS: Famotidine/PF 20 mg/2ml Vial SLOW IVP SCH (11:52)
[2017-12-25 12:16] LABS: HIV 1 Antibody Multi-Spot Positive (Negative); HIV 2 Antibody Multi-Spot Negative (Negative); HIV Multi-spot Interp HIV-1 Positive (.)
--- NOTE | 2017-12-25 12:28 | PDOC.PN ---
- Subjective Encounter Start Date: 12/25/17 Encounter Start Time: 09:15 Patient seen and examined for pneumonia. still appear tachypenic and tachycardic .No new complaints. No overnight events - Objective Resuscitation Status: Resuscitation Status FULL:Full Resuscitation MAR Reviewed: Yes Vital Signs & Weight: Vital Signs (12 hours) Temp Pulse Resp BP BP Pulse Ox 12/25/17 12:00 98.0 F 110 H 49 H 135/86 100 12/25/17 08:19 97.9 F 126 H 55 H 123/77 91 L 12/25/17 08:00 97.9 F 113 H 22 H 96 12/25/17 06:34 99 12/25/17 06:30 113 H 16 99 12/25/17 03:58 98.1 F 113 H 22 H 114/65 95 12/25/17 00:29 95 16 96 Weight Weight 136 lb 6.4 oz I&O: 12/24/17 12/25/17 12/26/17 06:59 06:59 06:59 Intake Total 1850 3120 Output Total 1200 1650 Balance 650 1470 Result Diagrams: 12/24/17 02:35 12/24/17 02:35 EKG Reviewed by me: Yes (nsr) Phys Exam - Physical Examination Constitutional: NAD HEENT: PERRLA, moist MMs, sclera anicteric Neck: no JVD, supple Respiratory: no wheezing, no rales, no rhonchi Cardiovascular: RRR, no significant murmur, no rub tachycardia Gastrointestinal: soft, non-tender, no distention, positive bowel sounds Musculoskeletal: no edema, pulses present Neurological: non-focal, normal sensation Psychiatric: normal affect, A&O x 3 Skin: no rash, normal turgor Dx/Plan (1) PCP (pneumocystis carinii pneumonia) Code(s): B59 - PNEUMOCYSTOSIS Status: Acute Qualifiers: Laterality: bilateral (2) Acute respiratory failure with hypoxia Code(s): J96.01 - ACUTE RESPIRATORY FAILURE WITH HYPOXIA Status: Acute (3) HIV (human immunodeficiency virus infection) Status: Acute (4) Hypoalbuminemia Code(s): E88.09 - OTH DISORDERS OF PLASMA-PROTEIN METABOLISM, NEC Status: Acute (5) Hypokalemia Code(s): E87.6 - HYPOKALEMIA Status: Acute (6) Hyponatremia Code(s): E87.1 - HYPO-OSMOLALITY AND HYPONATREMIA Status: Acute (7) Sepsis with acute organ dysfunction Code(s): A41.9 - SEPSIS, UNSPECIFIED ORGANISM; R65.20 - SEVERE SEPSIS WITHOUT SEPTIC SHOCK Status: Acute (8) Anemia with chronic illness Code(s): D63.8 - ANEMIA IN OTHER CHRONIC DISEASES CLASSIFIED ELSEWHERE Status : Chronic (9) Protein-calorie malnutrition, moderate Code(s): E44.0 - MODERATE PROTEIN-CALORIE MALNUTRITION Status: Chronic - Plan cont current plan of care, continue antibiotics, respiratory therapy * continue current empiric treatment for pcp pneumonia * follow up on send out test result * medication reviewed as below * symptomatic treatment * continue IV solumedrol * ID recommendation noted . Review of Systems - Review of Systems Eyes: negative: Pain, Vision Change, Conjunctivae Inflammation, Eyelid Inflammation, Redness, Other ENT: negative: Ear Pain, Ear Discharge, Nose Pain, Nose Discharge, Nose Congestion, Mouth Pain, Mouth Swelling, Throat Pain, Throat Swelling, Other Respiratory: Cough, Shortness of Breath. negative: Dry, Hemoptysis, SOB with Excertion, Pleuritic Pain, Sputum, Wheezing Cardiovascular: negative: chest pain, palpitations, orthopnea, paroxysmal nocturnal dyspnea, edema, light headedness, other Gastrointestinal: negative: Nausea, Vomiting, Abdominal Pain, Diarrhea, Constipation, Melena, Hematochezia, Other Genitourinary: negative: Dysuria, Frequency, Incontinence, Hematuria, Retention , Other Musculoskeletal: negative: Neck Pain, Shoulder Pain, Arm Pain, Back Pain, Hand Pain, Leg Pain, Foot Pain, Other Skin: negative: Rash, Lesions, Damon, Bruising, Other - Medications/Allergies Allergies/Adverse Reactions: Allergies Allergy/AdvReac Type Severity Reaction Status Date / Time No Known Allergies Allergy Verified 10/14/17 14:52 Medications: Current Medications Acetaminophen (Tylenol) 650 mg PO Q4H PRN PRN Reason: Headache/Fever or Pain Last Admin: 12/24/17 00:49 Dose: 650 mg Hydrocodone Bitart/Acetaminophen ([place] 5/325) 1 tab PO Q4H PRN PRN Reason: Moderate Pain (4-6) Al Hydroxide/Mg Hydroxide (Maalox) 30 ml PO Q6H PRN PRN Reason: Heartburn or Indigestion Albuterol/Ipratropium (Duoneb) 3 ml NEB [id number] Last Admin: 12/25/17 06:30 Dose: 3 ml Enoxaparin Sodium (Lovenox) 40 mg SC 0900 [facility] Last Admin: 12/25/17 08:56 Dose: 40 mg Famotidine (Pepcid) 20 mg SLOW IVP Q12HR [facility] Last Admin: 12/25/17 11:52 Dose: Not Given Guaifenesin (Mucinex) 600 mg PO Q12HR [facility] Last Admin: 12/25/17 08:56 Dose: 600 mg Piperacillin Sod/Tazobactam (Sod 3.375 gm/ Sodium Chloride) 100 mls @ 200 mls/ hr IVPB Q6HR [facility] Last Admin: 12/25/17 06:28 Dose: 100 mls Sodium Chloride (Normal Saline 0.9%) 1,000 mls @ 100 mls/hr IV .Q10H [facility] Last Admin: 12/25/17 00:26 Dose: 1,000 mls Trimethoprim/Sulfamethoxazole (150 mg/ Dextrose/Water) 250 mls @ 250 mls/hr IVPB Q6HR [facility] Last Admin: 12/25/17 06:27 Dose: 250 mls Iron/Minerals/Multivitamins (Theragran M) 1 tab PO DAILY [facility] Last Admin: 12/25/17 08:56 Dose: 1 tab Loperamide HCl (Imodium) 2 mg PO PRN PRN PRN Reason: Diarrhea/Loose Stools Magnesium Hydroxide (Milk Of Magnesium) 30 ml PO DAILYPRN PRN PRN Reason: Constipation Methylprednisolone Sodium Succinate (Solu-Medrol) 40 mg IVP Q6HR [facility] Last Admin: 12/25/17 06:27 Dose: 40 mg Ondansetron HCl (Zofran Odt) 4 mg PO Q6H PRN PRN Reason: Nausea/Vomiting Ondansetron HCl (Zofran) 4 mg IVP Q6H PRN PRN Reason: Nausea/Vomiting Pantoprazole Sodium (Protonix) 40 mg PO DAILY [facility] Last Admin: 12/25/17 08:56 Dose: 40 mg Senna (Senokot) 2 tab PO HSPRN PRN PRN Reason: Constipation Sodium Chloride (Flush - Normal Saline) 10 ml IVF Q12HR [facility] Last Admin: 12/25/17 11:52 Dose: Not Given Sodium Chloride (Flush - Normal Saline) 10 ml IVF PRN PRN PRN Reason: Saline Flush Zolpidem Tartrate (Ambien) 5 mg PO HSPRN PRN PRN Reason: Insomnia
[2017-12-25 14:30] LABS: %CD4 (Helper/Inducer) 3.2 % (30.8-58.5); Absolute CD4 6 /uL (359-1519); Lymphocytes/Gated Cell Count 0.2 x10E3/uL (0.7-3.1); Total Lymphocyte 4 % (Not Estab.); WBC Total Count 4.6 x10E3/uL (3.4-10.8)
[2017-12-26 05:44] LABS: Anion Gap 8 mmol/L (10-20); BUN (Urea Nitrogen) 11 mg/dL (8.9-20.6); Calc. Creatinine Clearance 100 mL/min (70-130); Calcium 7.5 mg/dL (7.8-10.44); Carbon Dioxide 23 mmol/L (22-29); Chloride 110 mmol/L (98-107); Estimated GFR-MDRD Greater than 90; Glucose 193 mg/dL (70-105); Sodium 139 mmol/L (136-145)
[2017-12-26 05:50] LABS: Potassium 2.1 mmol/L (3.5-5.1)
[2017-12-26 05:54] LABS: Band 6 % (5-11); Hemoglobin 9.4 g/dL (14.0-18.0); Lymphocytes 6 % (21-51); MDiff Complete? YES; Mean Corpuscular HGB CONC 33.5 g/dL (32.0-36.0); Mean Corpuscular Hemoglobin 28.3 pg (27.0-31.0); Mean Corpuscular Volume 84.5 fl (80.0-94.0); Mean Platelet Volume 8.9 fL (7.4-10.4); Monocytes 2 % (0-10); Neutrophil 86 % (42-75); PLT Morphology Comment Appears Adequate; Platelet Count 192 thou/uL (130-400); RBC Distribution Width 14.1 % (11.5-14.5); RBC Morphology Normal; Red Blood Cell (RBC) Count 3.33 mill/uL (4.70-6.10); White Blood Cell (WBC) Count 6.1 thou/uL (4.8-10.8)
[2017-12-26] MEDS: Sodium Chloride 0.9% 1,000 ML IV SCH (06:04)
[2017-12-26] MEDS: SULFAMETHOXAZOLE IVPB SCH ×3 (06:04→17:08)
[2017-12-26] MEDS: TRIMETHOPRIM IVPB SCH ×3 (06:04→17:08)
[2017-12-26] MEDS: Piperacillin/Tazobactam 3.375 GM in Sodium Chloride 0.9% 100 ML IVPB SCH (06:04)
[2017-12-26] MEDS: DEXTROSE 5% IVPB SCH ×3 (06:04→17:08)
[2017-12-26] MEDS: WATER IVPB SCH ×3 (06:04→17:08)
[2017-12-26 07:03] LABS: Potassium 2.2 mmol/L (3.5-5.1)
[2017-12-26 07:34] LABS: Magnesium 1.9 mg/dL (1.6-2.6)
[2017-12-26] MEDS ORDERED: Potassium Phosphate 12 MMOL in Sodium Chloride 0.9% 100 ML IVPB SCH (07:45)
[2017-12-26] MEDS: Potassium Chloride 20 MEQ TAB PO SCH ×2 (09:27→16:31)
[2017-12-26] MEDS: Enoxaparin Sodium 40 MG/0.4 ML SYRINGE SC SCH (09:27)
[2017-12-26] MEDS: 1/2 NS w/KCL 20 mEq 1,000 ML IV SCH ×2 (09:27→20:35)
[2017-12-26] MEDS: Multivitamin W/ Minerals 1 TAB PO SCH (09:28)
[2017-12-26] MEDS: guaiFENesin ER 600 MG TAB PO SCH ×2 (09:28→21:23)
--- NOTE | 2017-12-26 11:15 | PDOC.PN ---
- Subjective Encounter Start Date: 12/26/17 Encounter Start Time: 09:10 Patient seen and examined for pneumonia. No new complaints. No overnight events - Objective Resuscitation Status: Resuscitation Status FULL:Full Resuscitation MAR Reviewed: Yes Vital Signs & Weight: Vital Signs (12 hours) Temp Pulse Resp BP Pulse Ox 12/26/17 08:00 97.7 F 111 H 22 H 98 12/26/17 07:00 97.7 F 111 H 22 H 129/64 93 L 12/26/17 06:43 96 12/26/17 06:42 101 H 20 96 12/26/17 04:00 98.0 F 103 H 35 H 115/72 92 L 12/26/17 00:00 97.8 F 117 H 22 H 108/63 90 L Weight Weight 135 lb 3.2 oz I&O: 12/25/17 12/26/17 12/27/17 06:59 06:59 06:59 Intake Total 3120 3680 Output Total 1650 1950 Balance 1470 1730 Result Diagrams: 12/26/17 04:27 12/26/17 06:35 EKG Reviewed by me: Yes (sinus tachycardia) Phys Exam - Physical Examination Constitutional: NAD HEENT: PERRLA, moist MMs, sclera anicteric Neck: no JVD, supple Respiratory: no wheezing, no rales, no rhonchi Cardiovascular: RRR, no significant murmur, no rub tachycardia Gastrointestinal: soft, non-tender, no distention, positive bowel sounds Musculoskeletal: no edema, pulses present Neurological: non-focal, normal sensation, moves all 4 limbs Lymphatic: no nodes Psychiatric: normal affect, A&O x 3 Skin: no rash, normal turgor Dx/Plan (1) PCP (pneumocystis carinii pneumonia) Code(s): B59 - PNEUMOCYSTOSIS Status: Acute Qualifiers: Laterality: bilateral (2) Acute respiratory failure with hypoxia Code(s): J96.01 - ACUTE RESPIRATORY FAILURE WITH HYPOXIA Status: Acute (3) HIV (human immunodeficiency virus infection) Status: Acute (4) Hypoalbuminemia Code(s): E88.09 - OTH DISORDERS OF PLASMA-PROTEIN METABOLISM, NEC Status: Acute (5) Hypokalemia Code(s): E87.6 - HYPOKALEMIA Status: Acute (6) Hyponatremia Code(s): E87.1 - HYPO-OSMOLALITY AND HYPONATREMIA Status: Acute (7) Sepsis with acute organ dysfunction Code(s): A41.9 - SEPSIS, UNSPECIFIED ORGANISM; R65.20 - SEVERE SEPSIS WITHOUT SEPTIC SHOCK Status: Acute (8) Anemia with chronic illness Code(s): D63.8 - ANEMIA IN OTHER CHRONIC DISEASES CLASSIFIED ELSEWHERE Status : Chronic (9) Protein-calorie malnutrition, moderate Code(s): E44.0 - MODERATE PROTEIN-CALORIE MALNUTRITION Status: Chronic - Plan cont current plan of care, continue antibiotics * continue diflucan started today by pulmonary * continue bactrim for likely PCP pneumonia * solumedrol dose reduced * follow up on send out result * dr mcclure following, * pt has very low CD4 count * continue current treatment as below * symptomatic treatment. Review of Systems - Review of Systems Constitutional: weakness. negative: fever, chills, sweats, malaise, other ENT: negative: Ear Pain, Ear Discharge, Nose Pain, Nose Discharge, Nose Congestion, Mouth Pain, Mouth Swelling, Throat Pain, Throat Swelling, Other Respiratory: Cough, Shortness of Breath, SOB with Excertion. negative: Dry, Hemoptysis, Pleuritic Pain, Sputum, Wheezing Cardiovascular: negative: chest pain, palpitations, orthopnea, paroxysmal nocturnal dyspnea, edema, light headedness, other Gastrointestinal: negative: Nausea, Vomiting, Abdominal Pain, Diarrhea, Constipation, Melena, Hematochezia, Other Genitourinary: negative: Dysuria, Frequency, Incontinence, Hematuria, Retention , Other Musculoskeletal: negative: Neck Pain, Shoulder Pain, Arm Pain, Back Pain, Hand Pain, Leg Pain, Foot Pain, Other Skin: negative: Rash, Lesions, Damon, Bruising, Other - Medications/Allergies Allergies/Adverse Reactions: Allergies Allergy/AdvReac Type Severity Reaction Status Date / Time No Known Allergies Allergy Verified 10/14/17 14:52 Medications: Current Medications Acetaminophen (Tylenol) 650 mg PO Q4H PRN PRN Reason: Headache/Fever or Pain Last Admin: 12/24/17 00:49 Dose: 650 mg Hydrocodone Bitart/Acetaminophen ([place] 5/325) 1 tab PO Q4H PRN PRN Reason: Moderate Pain (4-6) Al Hydroxide/Mg Hydroxide (Maalox) 30 ml PO Q6H PRN PRN Reason: Heartburn or Indigestion Albuterol/Ipratropium (Duoneb) 3 ml NEB [id number] Last Admin: 12/26/17 06:42 Dose: 3 ml Enoxaparin Sodium (Lovenox) 40 mg SC 0900 [facility] Last Admin: 12/26/17 09:27 Dose: 40 mg Fluconazole (Diflucan) 400 mg PO DAILY [facility] Guaifenesin (Mucinex) 600 mg PO Q12HR [facility] Last Admin: 12/26/17 09:28 Dose: 600 mg Trimethoprim/Sulfamethoxazole (150 mg/ Dextrose/Water) 250 mls @ 250 mls/hr IVPB Q6HR [facility] Last Admin: 12/26/17 06:04 Dose: 250 mls Potassium Chloride/Sodium Chloride (1/2 Ns W/Kcl 20 Meq) 1,000 mls @ 75 mls/hr IV .[id number] [facility] Last Admin: 12/26/17 09:27 Dose: 1,000 mls Potassium Phosphate 12 mmol/ (Sodium Chloride) 104 mls @ 25 mls/hr IVPB [facility] Stop: 12/26/17 12:00 Last Admin: 12/26/17 09:28 Dose: 104 mls Iron/Minerals/Multivitamins (Theragran M) 1 tab PO DAILY [facility] Last Admin: 12/26/17 09:28 Dose: 1 tab Loperamide HCl (Imodium) 2 mg PO PRN PRN PRN Reason: Diarrhea/Loose Stools Magnesium Hydroxide (Milk Of Magnesium) 30 ml PO DAILYPRN PRN PRN Reason: Constipation Methylprednisolone Sodium Succinate (Solu-Medrol) 20 mg IVP Q6HR [facility] Ondansetron HCl (Zofran Odt) 4 mg PO Q6H PRN PRN Reason: Nausea/Vomiting Ondansetron HCl (Zofran) 4 mg IVP Q6H PRN PRN Reason: Nausea/Vomiting Pantoprazole Sodium (Protonix) 40 mg PO DAILY [facility] Last Admin: 12/26/17 09:28 Dose: 40 mg Potassium Chloride (K-Dur) 40 meq PO BID-[facility] Stop: 12/26/17 17:01 Last Admin: 12/26/17 09:27 Dose: 40 meq Senna (Senokot) 2 tab PO HSPRN PRN PRN Reason: Constipation Sodium Chloride (Flush - Normal Saline) 10 ml IVF Q12HR [facility] Last Admin: 12/26/17 09:28 Dose: 10 ml Sodium Chloride (Flush - Normal Saline) 10 ml IVF PRN PRN PRN Reason: Saline Flush Zolpidem Tartrate (Ambien) 5 mg PO HSPRN PRN PRN Reason: Insomnia
[2017-12-26] MEDS: Fluconazole 100 MG TAB PO SCH (11:25)
--- NOTE | 2017-12-26 12:20 | PRG ---
DATE OF SERVICE: 12/26/2017 SUBJECTIVE: Through a cold press operator, I was able to identify that the patient is doing okay. He seems quite nervous about his condition. I was able to relate with him that his HIV has been confir med positive. He did admit to us that he is bisexual, but he did not know before that he had HIV. OBJECTIVE: VITAL SIGNS: On exam, temperature 97.7, pulse 111, respirations 22, O2 sat 93% on 3 liters, blood pr essure 129/64. HEENT: Unremarkable. NECK: No JVD. LUNGS: Fairly clear. CARDIAC: S1 and S2, regular. ABDOMEN: Soft. EXTREMITIES: No edema. LABORATORY DATA: White blood cell count 6.1, hematocrit 28.1, platelet count 192. Sodium 139, potas sium 3.1, chloride 110, CO2 of 23, BUN 11, creatinine 0.7, glucose 193. His cytology was actually ne gative for pneumocystis, although this could be a false negative result. ASSESSMENT: 1. Presumed pneumocystis pneumonia. 2. New diagnosis of human immunodeficiency virus. 3. Fungus in sputum, which may or may not be a contaminant. PLAN: 1. We will go ahead and add fluconazole. 2. Continue the Bactrim, but discontinue the Zosyn. 3. Can move out to the medical floor. 4. Begin tapering steroids.
[2017-12-26 14:22] LABS: CMV log 10 Quant 3.945 (.)
--- NOTE | 2017-12-26 18:52 | PRG ---
DATE OF SERVICE: 12/26/2017 SUBJECTIVE: Transferred to pediatrics. She is feeling better, coughing intermittently, still with a shallow respiratory pattern. No headaches, no chest pain, no abdominal pain or diarrhea. No genito urinary symptoms. OBJECTIVE: VITAL SIGNS: T-max 98.6. Still tachycardic. O2 sat 94% on 2 liters nasal cannula. BP 136/71. LUNGS: Still bibasilar inspiratory crackles, cellophane like. HEART: S1, S2 with a loud pulmonary component indicative of pulmonary hypertension. ABDOMEN: Soft. EXTREMITIES: Moves all extremities. LABORATORY DATA: White cell count 6.1, hemoglobin 9.4, platelets 192, 86% neutrophils and potassium 2.2, creatinine 0.77. LDH 1207. CMV DNA UltraQuant 8800, the other assays are pending. ASSESSMENT AND DISCUSSION: Advanced human immunodeficiency virus infection with likely pneumocystis pneumonia, also has cytomegalovirus viremia. We will go ahead and add valganciclovir orally 900 mg t wice daily, induction phase, continued him with Bactrim and Medrol eventually transitioned to prednis one. The patient probably will remain in the hospital for a few more days. The endpoint will be O2 saturation after exercise above 90%. He is still at risk for deterioration of his respiratory status and he could potentially end up back in a monitored setting depending on clinical progress. Hopeful ly, that is not going to be the case for this patient. Withhold antiretroviral therapy until his pne umocystis pneumonia has improved markedly.
[2017-12-27] MEDS: DEXTROSE 5% IVPB SCH ×5 (00:25→23:47)
[2017-12-27] MEDS: WATER IVPB SCH ×5 (00:25→23:47)
[2017-12-27] MEDS: TRIMETHOPRIM IVPB SCH ×5 (00:25→23:47)
[2017-12-27] MEDS: SULFAMETHOXAZOLE IVPB SCH ×5 (00:25→23:47)
[2017-12-27] MEDS: Enoxaparin Sodium 40 MG/0.4 ML SYRINGE SC SCH (08:12)
[2017-12-27] MEDS: 1/2 NS w/KCL 20 mEq 1,000 ML IV SCH (08:12)
[2017-12-27] MEDS: guaiFENesin ER 600 MG TAB PO SCH ×2 (08:14→20:05)
[2017-12-27] MEDS: Fluconazole 100 MG TAB PO SCH (08:14)
[2017-12-27] MEDS: Multivitamin W/ Minerals 1 TAB PO SCH (08:14)
--- NOTE | 2017-12-27 10:54 | PDOC.PN ---
- Subjective Encounter Start Date: 12/27/17 Encounter Start Time: 08:15 Patient seen and examined for pcp pneumonia. No new complaints. No overnight events he still needs oxygen - Objective Resuscitation Status: Resuscitation Status FULL:Full Resuscitation MAR Reviewed: Yes Vital Signs & Weight: Vital Signs (12 hours) Temp Pulse Resp BP BP Pulse Ox 12/27/17 10:35 114 H 18 92 L 12/27/17 09:34 105 H 96 12/27/17 08:57 110 H 25 H 12/27/17 08:53 97.3 F L 118 H 44 H 92 L 12/27/17 08:00 97.3 F L 118 H 44 H 121/76 92 L 12/27/17 07:50 117 H 20 93 L 12/27/17 06:15 93 L 12/27/17 04:15 112 H 44 H 94 L 12/27/17 02:15 93 L 12/27/17 01:40 122 H 24 H 92 L 12/27/17 00:20 98.1 F 124 H 36 H 115/67 96 12/26/17 22:58 115 H 22 H 92 L Weight Weight 135 lb 3.2 oz I&O: 12/26/17 12/27/17 12/28/17 06:59 06:59 06:59 Intake Total 3680 3484 Output Total 1950 1145 Balance 1730 2339 Result Diagrams: 12/26/17 04:27 12/26/17 06:35 Phys Exam - Physical Examination Constitutional: NAD HEENT: PERRLA, moist MMs, sclera anicteric Neck: no JVD, supple Respiratory: no wheezing, no rales, no rhonchi Cardiovascular: RRR, no significant murmur, no rub Gastrointestinal: soft, non-tender, no distention, positive bowel sounds Musculoskeletal: no edema, pulses present Neurological: non-focal, normal sensation, moves all 4 limbs Psychiatric: normal affect, A&O x 3 Skin: no rash, normal turgor Dx/Plan (1) PCP (pneumocystis carinii pneumonia) Code(s): B59 - PNEUMOCYSTOSIS Status: Acute Qualifiers: Laterality: bilateral (2) Acute respiratory failure with hypoxia Code(s): J96.01 - ACUTE RESPIRATORY FAILURE WITH HYPOXIA Status: Acute (3) HIV (human immunodeficiency virus infection) Status: Acute (4) Hypoalbuminemia Code(s): E88.09 - OTH DISORDERS OF PLASMA-PROTEIN METABOLISM, NEC Status: Acute (5) Hypokalemia Code(s): E87.6 - HYPOKALEMIA Status: Acute (6) Hyponatremia Code(s): E87.1 - HYPO-OSMOLALITY AND HYPONATREMIA Status: Acute (7) Sepsis with acute organ dysfunction Code(s): A41.9 - SEPSIS, UNSPECIFIED ORGANISM; R65.20 - SEVERE SEPSIS WITHOUT SEPTIC SHOCK Status: Acute (8) Anemia with chronic illness Code(s): D63.8 - ANEMIA IN OTHER CHRONIC DISEASES CLASSIFIED ELSEWHERE Status : Chronic (9) Protein-calorie malnutrition, moderate Code(s): E44.0 - MODERATE PROTEIN-CALORIE MALNUTRITION Status: Chronic (10) Cytomegalovirus (CMV) viremia Code(s): B25.9 - CYTOMEGALOVIRAL DISEASE, UNSPECIFIED Status: Acute (11) Hypophosphatemia Code(s): E83.39 - OTHER DISORDERS OF PHOSPHORUS METABOLISM Status: Acute (12) Low CD4 cell count determined by flow cytometry Code(s): D72.9 - DISORDER OF WHITE BLOOD CELLS, UNSPECIFIED Status: Acute - Plan cont current plan of care, continue antibiotics, respiratory therapy * continue diflucan, * continue valaganciclovir as per ID, oral form not available?? * continue IV bactrim and IV solumedrol * monitor oxygen level * pt is not ready for discharge yet * medication reviewed as below * symptomatic treatment * ID, pulmonary following * DC IVF today. Review of Systems - Review of Systems Eyes: negative: Pain, Vision Change, Conjunctivae Inflammation, Eyelid Inflammation, Redness, Other ENT: negative: Ear Pain, Ear Discharge, Nose Pain, Nose Discharge, Nose Congestion, Mouth Pain, Mouth Swelling, Throat Pain, Throat Swelling, Other Respiratory: Cough, Shortness of Breath, SOB with Excertion. negative: Dry, Hemoptysis, Pleuritic Pain, Sputum, Wheezing Cardiovascular: negative: chest pain, palpitations, orthopnea, paroxysmal nocturnal dyspnea, edema, light headedness, other Gastrointestinal: negative: Nausea, Vomiting, Abdominal Pain, Diarrhea, Constipation, Melena, Hematochezia, Other Genitourinary: negative: Dysuria, Frequency, Incontinence, Hematuria, Retention , Other Musculoskeletal: negative: Neck Pain, Shoulder Pain, Arm Pain, Back Pain, Hand Pain, Leg Pain, Foot Pain, Other Skin: negative: Rash, Lesions, Damon, Bruising, Other - Medications/Allergies Allergies/Adverse Reactions: Allergies Allergy/AdvReac Type Severity Reaction Status Date / Time No Known Allergies Allergy Verified 10/14/17 14:52 Medications: Current Medications Acetaminophen (Tylenol) 650 mg PO Q4H PRN PRN Reason: Headache/Fever or Pain Last Admin: 12/24/17 00:49 Dose: 650 mg Hydrocodone Bitart/Acetaminophen ([place] 5/325) 1 tab PO Q4H PRN PRN Reason: Moderate Pain (4-6) Al Hydroxide/Mg Hydroxide (Maalox) 30 ml PO Q6H PRN PRN Reason: Heartburn or Indigestion Albuterol/Ipratropium (Duoneb) 3 ml NEB [id number] Last Admin: 12/27/17 10:35 Dose: 3 ml Enoxaparin Sodium (Lovenox) 40 mg SC 0900 [facility] Last Admin: 12/27/17 08:12 Dose: 40 mg Fluconazole (Diflucan) 400 mg PO DAILY [facility] Last Admin: 12/27/17 08:14 Dose: 400 mg Guaifenesin (Mucinex) 600 mg PO Q12HR [facility] Last Admin: 12/27/17 08:14 Dose: 600 mg Trimethoprim/Sulfamethoxazole (150 mg/ Dextrose/Water) 250 mls @ 250 mls/hr IVPB Q6HR [facility] Last Admin: 12/27/17 06:23 Dose: 250 mls Potassium Chloride/Sodium Chloride (1/2 Ns W/Kcl 20 Meq) 1,000 mls @ 75 mls/hr IV .[id number] [facility] Last Admin: 12/27/17 08:12 Dose: 1,000 mls Iron/Minerals/Multivitamins (Theragran M) 1 tab PO DAILY [facility] Last Admin: 12/27/17 08:14 Dose: 1 tab Loperamide HCl (Imodium) 2 mg PO PRN PRN PRN Reason: Diarrhea/Loose Stools Magnesium Hydroxide (Milk Of Magnesium) 30 ml PO DAILYPRN PRN PRN Reason: Constipation Methylprednisolone Sodium Succinate (Solu-Medrol) 20 mg IVP Q6HR [facility] Last Admin: 12/27/17 06:19 Dose: 20 mg Ondansetron HCl (Zofran Odt) 4 mg PO Q6H PRN PRN Reason: Nausea/Vomiting Ondansetron HCl (Zofran) 4 mg IVP Q6H PRN PRN Reason: Nausea/Vomiting Pantoprazole Sodium (Protonix) 40 mg PO DAILY [facility] Last Admin: 12/27/17 08:14 Dose: 40 mg Senna (Senokot) 2 tab PO HSPRN PRN PRN Reason: Constipation Sodium Chloride (Flush - Normal Saline) 10 ml IVF Q12HR [facility] Last Admin: 12/27/17 08:05 Dose: Not Given Sodium Chloride (Flush - Normal Saline) 10 ml IVF PRN PRN PRN Reason: Saline Flush Last Admin: 12/27/17 00:23 Dose: 10 ml Zolpidem Tartrate (Ambien) 5 mg PO HSPRN PRN PRN Reason: Insomnia
--- NOTE | 2017-12-27 12:57 | PRG ---
DATE OF SERVICE: 12/27/2017 SUBJECTIVE: The patient seems to be doing a little better. PHYSICAL EXAMINATION: VITAL SIGNS: Temperature 97.3, pulse 110, O2 sats between 96% and 98% on 4 liters, respiratory rate 18, blood pressure 121/76. GENERAL: He is awake and alert and in no distress. He is far less tachypneic today compared to rigoberto mares. HEENT: Unremarkable. NECK: Without adenopathy or JVD. LUNGS: A few extra crackles at the bases. CARDIAC: S1 and S2 regular. ABDOMEN: Soft and nontender. EXTREMITIES: No edema. LABORATORIES: Not checked today, probably need to be given his low potassium over the last several d ays. ASSESSMENT: 1. Likely pneumocystis pneumonia. 2. Human immunodeficiency virus. PLAN: We are continuing treatment with steroids and Bactrim. He is also on fluconazole. I think he will be in the hospital for several more days.
--- NOTE | 2017-12-27 23:29 | RAD ---
TWO VIEWS CHEST: 12/27/17 HISTORY: PCP pneumonia. PA and lateral views of the chest is obtained on 12/27/17. Comparison made to previous exam from 8. Two views chest demonstrate diffuse air space opacities and increased interstitial markings throughou t the lungs. This is concerning for interstitial pneumonia including pneumocystis pneumonia. No evidence of pneumothorax seen. No evidence of effusions seen. IMPRESSION: Diffuse interstitial and air space opacities involving the right and left lungs. POS: [facility]
[2017-12-27 23:41] LABS: ALT (SGPT) 70 U/L (8-55); AST (SGOT) 72 U/L (5-34); Albumin 2.3 g/dL (3.5-5.0); Alkaline Phosphatase 67 U/L (40-150); Anion Gap 10 mmol/L (10-20); BUN (Urea Nitrogen) 12 mg/dL (8.9-20.6); Bilirubin, Total 0.3 mg/dL (0.2-1.2); Calc. Creatinine Clearance 92 mL/min (70-130); Calcium 7.7 mg/dL (7.8-10.44); Carbon Dioxide 22 mmol/L (22-29); Chloride 108 mmol/L (98-107); Estimated GFR-MDRD Greater than 90; Globulin 2.8 g/dL (2.4-3.5); Glucose 270 mg/dL (70-105); Potassium 3.2 mmol/L (3.5-5.1); Protein, Total 5.1 g/dL (6.0-8.3); Sodium 137 mmol/L (136-145)
[2017-12-27 23:42] LABS: Actual Bicarbonate (HCO3a) 21.1 mEq/L (22-26); Base Excess (BEa) -1.8 mEq/L (0 (+/-) 2.5); CO2 Tension 29.1 mmHg (35.0-45.0); Calcium, Ionized 1.2 mmol/L (1.12-1.30); Hematocrit-ABG 28.8 % (42.0-52.0); Hemoglobin (Hb) 9.2 g/dL (14.0-18.0); O2 Tension (PaO2) 58.2 mmHg (80.0-100.0); Puncture Site RBRACH; pH, Arterial 7.48 (7.35-7.45)
[2017-12-27 23:50] LABS: Band 7 % (5-11); Elliptocytes SLIGHT = 2-5 cells (100X) (0-1/hpf); Hemoglobin 9.6 g/dL (14.0-18.0); Lymphocytes 2 % (21-51); MDiff Complete? YES; Mean Corpuscular HGB CONC 34.4 g/dL (32.0-36.0); Mean Corpuscular Hemoglobin 29.2 pg (27.0-31.0); Mean Corpuscular Volume 84.8 fl (80.0-94.0); Mean Platelet Volume 8.7 fL (7.4-10.4); Metamyelocyte 2 % (0-0); Monocytes 4 % (0-10); Neutrophil 84 % (42-75); Ovalocytes SLIGHT = 2-5 cells (100X) (0-1/hpf); PLT Morphology Comment Appears Adequate; Platelet Count 225 thou/uL (130-400); RBC Distribution Width 14.3 % (11.5-14.5); Reactive Lymphocytes 1 % (0-10); Red Blood Cell (RBC) Count 3.29 mill/uL (4.70-6.10); White Blood Cell (WBC) Count 6.6 thou/uL (4.8-10.8)
[2017-12-28 05:04] LABS: Anion Gap 12 mmol/L (10-20); BUN (Urea Nitrogen) 11 mg/dL (8.9-20.6); Calc. Creatinine Clearance 100 mL/min (70-130); Calcium 7.7 mg/dL (7.8-10.44); Carbon Dioxide 22 mmol/L (22-29); Chloride 108 mmol/L (98-107); Estimated GFR-MDRD Greater than 90; Glucose 222 mg/dL (70-105); Potassium 3.3 mmol/L (3.5-5.1); Sodium 139 mmol/L (136-145)
[2017-12-28] MEDS: WATER IVPB SCH ×4 (05:11→23:22)
[2017-12-28] MEDS: DEXTROSE 5% IVPB SCH ×4 (05:11→23:22)
[2017-12-28] MEDS: TRIMETHOPRIM IVPB SCH ×4 (05:11→23:22)
[2017-12-28] MEDS: SULFAMETHOXAZOLE IVPB SCH ×4 (05:11→23:22)
[2017-12-28 05:18] LABS: Band 1 % (5-11); Hemoglobin 9.8 g/dL (14.0-18.0); Hypochromia SLIGHT = 6-15 cells (100X) (0-5/hpf); Lymphocytes 2 % (21-51); MDiff Complete? YES; Mean Corpuscular HGB CONC 32.5 g/dL (32.0-36.0); Mean Corpuscular Hemoglobin 28.8 pg (27.0-31.0); Mean Corpuscular Volume 88.5 fl (80.0-94.0); Mean Platelet Volume 9.1 fL (7.4-10.4); Monocytes 2 % (0-10); Neutrophil 95 % (42-75); PLT Morphology Comment Appears Adequate; Platelet Count 225 thou/uL (130-400); RBC Distribution Width 14.8 % (11.5-14.5)
[2017-12-28] MEDS: Fluconazole 100 MG TAB PO SCH (09:49)
[2017-12-28] MEDS: Enoxaparin Sodium 40 MG/0.4 ML SYRINGE SC SCH (09:49)
[2017-12-28] MEDS: guaiFENesin ER 600 MG TAB PO SCH ×2 (09:50→21:29)
[2017-12-28] MEDS: Multivitamin W/ Minerals 1 TAB PO SCH (09:50)
--- NOTE | 2017-12-28 11:12 | PDOC.PN ---
- Subjective Encounter Start Date: 12/28/17 Encounter Start Time: 11:09 Patient seen and examined, states he feels ok, no other issues, no family at bedside, all questions answered. - Objective Resuscitation Status: Resuscitation Status FULL:Full Resuscitation Vital Signs & Weight: Vital Signs (12 hours) Temp Pulse Resp BP BP Pulse Ox 12/28/17 08:08 120 H 20 96 12/28/17 07:37 97.9 F 106 H 20 92 L 12/28/17 07:33 97.9 F 106 H 20 136/89 97 12/28/17 04:00 98.4 F 112 H 22 H 129/76 97 12/28/17 02:38 115 H 20 96 12/28/17 00:00 99 12/27/17 23:30 98.4 F 112 H 22 H 93 L 12/27/17 23:29 97.7 F 118 H 24 H 128/77 92 L Weight Weight 136 lb I&O: 12/27/17 12/28/17 12/29/17 06:59 06:59 06:59 Intake Total 3484 740 Output Total 1145 2040 Balance 2339 -1300 Result Diagrams: 12/28/17 04:10 12/28/17 04:10 Phys Exam - Physical Examination Constitutional: NAD HEENT: PERRLA, moist MMs, sclera anicteric, oral pharynx no lesions Neck: no nodes, no JVD, supple, full ROM Respiratory: no wheezing, no rales, no rhonchi Cardiovascular: no significant murmur, no rub tachycardic rate Gastrointestinal: soft, non-tender, no distention, positive bowel sounds Musculoskeletal: no edema, pulses present Neurological: non-focal, normal sensation Psychiatric: normal affect, A&O x 3 Skin: no rash, normal turgor Dx/Plan (1) Tachycardia Code(s): R00.0 - TACHYCARDIA, UNSPECIFIED Status: Acute (2) Cytomegalovirus (CMV) viremia Code(s): B25.9 - CYTOMEGALOVIRAL DISEASE, UNSPECIFIED Status: Acute (3) HIV (human immunodeficiency virus infection) Status: Acute (4) Hypoalbuminemia Code(s): E88.09 - OTH DISORDERS OF PLASMA-PROTEIN METABOLISM, NEC Status: Acute (5) Low CD4 cell count determined by flow cytometry Code(s): D72.9 - DISORDER OF WHITE BLOOD CELLS, UNSPECIFIED Status: Acute (6) Anemia with chronic illness Code(s): D63.8 - ANEMIA IN OTHER CHRONIC DISEASES CLASSIFIED ELSEWHERE Status : Chronic - Plan * Patient advised to contact [employer] to have help arranging medications for HIV once discharged form hospital, will consult CM to help with set up, d/w Dr. Puri also who has kindly agreed to help patient out to his full capacity * Pulmonary medicine also following, input much appreciated * continue current plan of care for now * patient's expressed wishes that he doens't want his HIV status discussed with his family as no one is aware, patient was advised to tell his boss if he returns to his work as he works in the kitchen of an [employer] * Patient otherwise is progressing well for now, no changes in plan of care, can be transferred to telemetry if ok with pulmonary and ID teams * case and plan d/w patient, in [place], he understands and agrees with this plan
--- NOTE | 2017-12-28 11:33 | PRG ---
DATE OF SERVICE: 12/28/2017 SUBJECTIVE: The patient says he feels better. He was actually moved back to the [facility] last night bec ause of hypoxemia. PHYSICAL EXAMINATION: VITAL SIGNS: Temperature is 97.9, pulse between 110 and 120, O2 sat was 97% on 4 liters, respiratory rate 20, and blood pressure 136/89. HEENT: Unremarkable. NECK: No JVD. LUNGS: He has fine inspiratory crackles bilaterally. CARDIOVASCULAR: S1 and S2, tachycardic without murmur. ABDOMEN: Soft, nontender. EXTREMITIES: No edema. LABORATORY DATA AND IMAGING DATA: Sodium 139, potassium 3.3, chloride 108, CO2 22, BUN 11, creatinin e 0.7, glucose 222, white blood cell count 6, hematocrit 30.1, platelet count 225. Chest x-ray from yesterday showed no acute changes. ASSESSMENT: 1. Presumed pneumocystis pneumonia with hypoxemia. 2. Acute respiratory failure secondary to hypoxemia. PLAN: I think we can go ahead and reduce the steroid dose down. He is continuing IV Bactrim. We wi ll try to reduce his oxygen flow.
--- NOTE | 2017-12-28 17:55 | EKG ---
Test Reason : Blood Pressure : / mmHG Vent. Rate : 143 BPM Atrial Rate : 143 BPM P-R Int : 124 ms QRS Dur : 070 ms QT Int : 284 ms P-R-T Axes : 043 046 053 degrees QTc Int : 438 ms Sinus tachycardia with occasional Premature ventricular complexes Otherwise normal ECG Left ventricular hypertrophy Confirmed by DAVE DAUGHERTY, JESUS Rodriguez ([id number]), manuscript editor ALO COLEMAN ([id number]) on 12/28/2017 5:54:24 PM Referred By: Confirmed By:JESUS ACOSTA MD
[2017-12-28] MEDS ORDERED: Azithromycin 250 MG TAB PO SCH (22:15)
[2017-12-29] MEDS: WATER IVPB SCH (05:34)
[2017-12-29] MEDS: SULFAMETHOXAZOLE IVPB SCH (05:34)
[2017-12-29] MEDS: DEXTROSE 5% IVPB SCH (05:34)
[2017-12-29] MEDS: TRIMETHOPRIM IVPB SCH (05:34)
[2017-12-29] MEDS: Fluconazole 100 MG TAB PO SCH (09:19)
[2017-12-29] MEDS: Enoxaparin Sodium 40 MG/0.4 ML SYRINGE SC SCH (09:19)
[2017-12-29] MEDS: guaiFENesin ER 600 MG TAB PO SCH ×2 (09:20→20:46)
[2017-12-29] MEDS: Multivitamin W/ Minerals 1 TAB PO SCH (09:20)
--- NOTE | 2017-12-29 11:12 | PDOC.PN ---
- Subjective Encounter Start Date: 12/29/17 Encounter Start Time: 11:10 Patient seen and examined, no new issues, all questions answered. - Objective Resuscitation Status: Resuscitation Status FULL:Full Resuscitation Vital Signs & Weight: Vital Signs (12 hours) Temp Pulse Resp BP Pulse Ox 12/29/17 08:45 109 H 20 97 12/29/17 08:00 98.5 F 109 H 20 94 L 12/29/17 07:50 98.5 F 112 H 30 H 129/84 97 12/29/17 04:00 98.4 F 119 H 18 106/76 92 L 12/29/17 02:14 121 H 20 97 12/28/17 23:26 98.2 F 125 H 20 125/77 93 L Weight Weight 132 lb 11.2 oz I&O: 12/28/17 12/29/17 12/30/17 06:59 06:59 06:59 Intake Total 740 2900 Output Total 2040 2850 Balance -1300 50 Result Diagrams: 12/28/17 04:10 12/28/17 04:10 Phys Exam - Physical Examination Constitutional: NAD HEENT: PERRLA, moist MMs, sclera anicteric, TM's clear Neck: no nodes, no JVD, supple, full ROM Respiratory: no wheezing, no rales, no rhonchi Cardiovascular: no significant murmur, no rub tachycardic Gastrointestinal: soft, non-tender, no distention, positive bowel sounds Musculoskeletal: no edema, pulses present Neurological: non-focal, normal sensation, moves all 4 limbs Psychiatric: normal affect, A&O x 3 Skin: no rash, normal turgor Dx/Plan (1) Tachycardia Code(s): R00.0 - TACHYCARDIA, UNSPECIFIED Status: Acute (2) Cytomegalovirus (CMV) viremia Code(s): B25.9 - CYTOMEGALOVIRAL DISEASE, UNSPECIFIED Status: Acute (3) HIV (human immunodeficiency virus infection) Status: Acute (4) Hypoalbuminemia Code(s): E88.09 - OTH DISORDERS OF PLASMA-PROTEIN METABOLISM, NEC Status: Acute (5) Low CD4 cell count determined by flow cytometry Code(s): D72.9 - DISORDER OF WHITE BLOOD CELLS, UNSPECIFIED Status: Acute (6) Anemia with chronic illness Code(s): D63.8 - ANEMIA IN OTHER CHRONIC DISEASES CLASSIFIED ELSEWHERE Status : Chronic - Plan * Cont current plan of care * abx per ID * ok to move to telemetry floor if ok with pulmonary medicine and ID * d/w patient about getting in touch with [facility] to have out patient HAART therapy set up once he discharges * no other change sin plan for now * case and plan d/w patient at [facility], he understands and agrees with this plan
--- NOTE | 2017-12-29 11:23 | PRG ---
DATE OF SERVICE: 12/29/2017 SUBJECTIVE: The patient says he is feeling much better. He is eating well. OBJECTIVE: VITAL SIGNS: Temperature 98.5, pulse 109, respirations 20, O2 saturation 97% on 2 liters. HEENT: Unremarkable. NECK: No JVD. CHEST: Clear. CARDIAC: S1 and S2 regular. ABDOMEN: Soft. EXTREMITIES: No edema. ASSESSMENT: 1. Pneumocystis pneumonia, presumed 2. Human immunodeficiency virus. PLAN: 1. He can move out to the medical floor. 2. Continue to wean oxygen. 3. Consider switching over to p.o. Bactrim.
[2017-12-29] MEDS: Sulfameth/Trimethoprim DS 800-160mg TAB PO SCH ×2 (13:42→17:15)
[2017-12-29] MEDS ORDERED: predniSONE 20 MG TAB PO SCH (14:45)
--- NOTE | 2017-12-29 16:18 | RAD ---
PA AND LATERAL CHEST: Date: 12/29/17 HISTORY: Follow-up pf pneumocystis pneumonia. COMPARISON: 12/27/17 study. FINDINGS: Heart size within normal limits. Parenchymal lung changes appear essentially stable. IMPRESSION: No significant change in the parenchymal lung changes. POS: [facility]
--- NOTE | 2017-12-29 19:23 | PRG ---
DATE OF SERVICE: 12/29/2017 SUBJECTIVE: Mr. Land is feeling better, less cough. He appears more anxious and little bit of d isorientation is almost early encephalopathy or delirium. Denies any headaches, no visual symptoms, no diarrhea, no change in his symptoms. OBJECTIVE: VITAL SIGNS: He has been afebrile. Still tachycardic. O2 sat dropped to 89. He must have removed his nasal cannula and now is 96 with same oxygen supplementation. GENERAL: Awake, alert, oriented. LUNGS: With clear breath sounds, no crackles noticeable at this time. No wheezing. CARDIOVASCULAR: S1 and S2, without murmurs. No S3 or S4. ABDOMEN: Soft, not distended. He moves all extremities equally. LABORATORY DATA: His white cell count 6.0, hemoglobin 9.8, platelets 225. Sodium 139, creatinine 0. 77, AST 72, ALT 70. The pneumocystis PCR was positive confirming the diagnosis. Urine histoplasma antigen was negative. Hepatitis C nonreactive. CMV, DNA, PCR was positive 8800. CD4 cell counts really low at 6. ASSESSMENT AND DISCUSSION: Advanced human immunodeficiency virus seropositive status, newly identifi ed with pneumocystis pneumonia and cytomegalovirus viremia marked decrease in CD4 cell count. The juliana isaacs is currently on azithromycin prophylaxis. We will continue on IV Bactrim eventual transition t o oral Bactrim and the dose will be one double strength 4 times a day or two double strength 3 times a day. We will transition him to oral prednisone now, continue Valcyte. Disposition will be eventua l discharge on Valcyte, Bactrim, and a tapering dose of prednisone as well as azithromycin prophylaxi s once weekly. In the outpatient setting, I will start them antiretroviral therapy. He will need to be screened by [facility] to see if he would be eligible for admission to the state program.
[2017-12-30] MEDS: Sulfameth/Trimethoprim DS 800-160mg TAB PO SCH ×5 (00:03→23:38)
[2017-12-30] MEDS: Fluconazole 100 MG TAB PO SCH (08:01)
[2017-12-30] MEDS: Azithromycin 250 MG TAB PO SCH (08:01)
[2017-12-30] MEDS: Multivitamin W/ Minerals 1 TAB PO SCH (08:01)
[2017-12-30] MEDS: Enoxaparin Sodium 40 MG/0.4 ML SYRINGE SC SCH (08:02)
[2017-12-30] MEDS: guaiFENesin ER 600 MG TAB PO SCH ×2 (08:02→20:25)
--- NOTE | 2017-12-30 09:50 | PRG ---
DATE OF SERVICE: 12/30/2017 Mr. Land feels better. He is anxious to get back to [place] at the earliest opportunity because that is where his family is. PHYSICAL EXAMINATION: VITAL SIGNS: Temperature 97.6, pulse 121, respirations 26, O2 sat 95% on 3 liters, blood pressure 11 2/69. HEENT: Unremarkable. NECK: No JVD. LUNGS: Fairly clear. CARDIAC: S1 and S2 regular. ABDOMEN: Soft. EXTREMITIES: No edema. ASSESSMENT: 1. Pneumocystis givoni pneumonia. 2. Human immunodeficiency virus. PLAN: 1. Continue Bactrim. 2. Hopefully home soon.
--- NOTE | 2017-12-30 13:07 | PDOC.PN ---
- Subjective Encounter Start Date: 12/30/17 Encounter Start Time: 14:15 Subjective: Patient with significant BENITEZ. Still requiring oxygen. No fever or chills. - Objective Resuscitation Status: Resuscitation Status FULL:Full Resuscitation MAR Reviewed: Yes Vital Signs & Weight: Vital Signs (12 hours) Temp Pulse Resp BP BP Pulse Ox 12/30/17 11:30 98.4 F 125 H 18 133/78 96 12/30/17 10:39 109 H 20 93 L 12/30/17 08:00 97.6 F 121 H 26 H 12/30/17 07:49 97.6 F 121 H 26 H 112/69 95 12/30/17 06:38 115 H 18 95 12/30/17 04:50 98.3 F 114 H 20 137/77 90 L 12/30/17 01:58 114 H 20 91 L 12/30/17 01:22 97.7 F 113 H 22 H 116/73 92 L Weight Weight 132 lb 11.2 oz I&O: 12/29/17 12/30/17 12/31/17 06:59 06:59 06:59 Intake Total 2900 1170 150 Output Total 2850 750 Balance 50 420 150 Result Diagrams: 12/28/17 04:10 12/28/17 04:10 Phys Exam - Physical Examination Constitutional: NAD HEENT: moist MMs Respiratory: no wheezing, no rales, no rhonchi decreased breath sounds bilaterally Cardiovascular: RRR, no significant murmur Gastrointestinal: soft, positive bowel sounds Musculoskeletal: no edema Neurological: non-focal, moves all 4 limbs Psychiatric: normal affect, A&O x 3 Dx/Plan (1) AIDS Status: Acute (2) HIV (human immunodeficiency virus infection) Status: Acute (3) Acute respiratory failure with hypoxia Code(s): J96.01 - ACUTE RESPIRATORY FAILURE WITH HYPOXIA Status: Acute Comment: Patient continues to require O2 via NC to keep sats above 90. Will likely need at home. (4) Cytomegalovirus (CMV) viremia Code(s): B25.9 - CYTOMEGALOVIRAL DISEASE, UNSPECIFIED Status: Acute (5) PCP (pneumocystis carinii pneumonia) Code(s): B59 - PNEUMOCYSTOSIS Status: Acute Qualifiers: Laterality: bilateral - Plan cont current plan of care, continue antibiotics Transitioned to oral Valcyclovir, Bactrim, and Valcyte -: Home when ok with ID and O/P meds/oxygen arranged * . - Discharge Day Encounter end time: 14:25
[2017-12-31] MEDS: Sulfameth/Trimethoprim DS 800-160mg TAB PO SCH ×4 (05:32→23:46)
[2017-12-31] MEDS: Acetaminophen 325 MG TAB PO PRN (05:32)
[2017-12-31] MEDS: Azithromycin 250 MG TAB PO SCH (08:30)
[2017-12-31] MEDS: Multivitamin W/ Minerals 1 TAB PO SCH (08:30)
[2017-12-31] MEDS: guaiFENesin ER 600 MG TAB PO SCH ×2 (08:30→21:31)
[2017-12-31] MEDS: Fluconazole 100 MG TAB PO SCH (08:30)
[2017-12-31] MEDS: Enoxaparin Sodium 40 MG/0.4 ML SYRINGE SC SCH (08:31)
[2017-12-31] MEDS: predniSONE 20 MG TAB PO SCH (08:34)
--- NOTE | 2017-12-31 09:25 | PRG ---
DATE OF SERVICE: 12/31/2017 SUBJECTIVE: He is sleeping this morning. PHYSICAL EXAMINATION: VITAL SIGNS: Apparently, had a low-grade temperature last night to 100.3, currently 98.7. Continues to have a resting tachycardia in the 120s, O2 sats running 89% on 1.5 liters while sleeping, blood p ressure 94/54. HEENT: Unremarkable. NECK: No JVD. LUNGS: Few inspiratory crackles. CARDIAC: S1 and S2 regular. ABDOMEN: Soft. EXTREMITIES: No edema. ASSESSMENT: 1. Pneumocystis pneumonia 2. Human immunodeficiency virus. 3. Continued hypoxemia. PLAN: I anticipate his recovery taking a while. Unfortunately, there is nothing I can do to speed t hat up other than continue current medications. It looks like somewhere along the line, his steroids have fallen off. Thus needs to be restarted until his hypoxemia has resolved.
--- NOTE | 2017-12-31 09:50 | PDOC.PN ---
- Subjective Encounter Start Date: 12/31/17 Encounter Start Time: 11:30 Subjective: Patient with fever to 100.9, tachycardic this AM and had to turn -: O2 back up to 3L. Patient without complaints. Asking when he can go home. - Objective Resuscitation Status: Resuscitation Status FULL:Full Resuscitation MAR Reviewed: Yes Vital Signs & Weight: Vital Signs (12 hours) Temp Pulse Resp BP Pulse Ox 12/31/17 07:46 98.7 F 126 H 289 H 94/54 L 12/31/17 06:34 130 H 14 12/31/17 04:36 100.3 F H 122 H 22 H 122/81 92 L 12/31/17 02:26 130 H 16 12/31/17 00:29 99.5 F 122 H 22 H 126/76 92 L 12/30/17 23:12 122 H 20 Weight Weight 132 lb 11.2 oz I&O: 12/30/17 12/31/17 01/01/18 06:59 06:59 06:59 Intake Total 1170 1968 Output Total 750 1425 Balance 420 543 Result Diagrams: 12/28/17 04:10 12/28/17 04:10 Phys Exam - Physical Examination Constitutional: NAD HEENT: moist MMs Respiratory: no rales, no rhonchi few scattered wheezes, air movement decreased throughout Tachycardia, no murmur Gastrointestinal: soft, non-tender, positive bowel sounds Musculoskeletal: no edema Neurological: non-focal, moves all 4 limbs Psychiatric: normal affect, A&O x 3 Dx/Plan (1) AIDS Status: Acute (2) HIV (human immunodeficiency virus infection) Status: Acute (3) Acute respiratory failure with hypoxia Code(s): J96.01 - ACUTE RESPIRATORY FAILURE WITH HYPOXIA Status: Acute Comment: Patient continues to require O2 via NC to keep sats above 90. Will likely need at home. (4) Cytomegalovirus (CMV) viremia Code(s): B25.9 - CYTOMEGALOVIRAL DISEASE, UNSPECIFIED Status: Acute (5) PCP (pneumocystis carinii pneumonia) Code(s): B59 - PNEUMOCYSTOSIS Status: Acute Qualifiers: Laterality: bilateral (6) Hypokalemia Code(s): E87.6 - HYPOKALEMIA Status: Acute Comment: recheck in AM to see if needs further supplementation (7) Sepsis Code(s): A41.9 - SEPSIS, UNSPECIFIED ORGANISM Status: Acute Comment: Patient with increased temp, worsening tachycardia. Continue antibiotics and antivirals for now. If worsens may need repeat cultures and reconsideration of antibiotic coverage. - Plan cont current plan of care, continue antibiotics, respiratory therapy, DVT proph w/lovenox * . - Discharge Day Encounter end time: 11:40
--- NOTE | 2017-12-31 16:56 | PRG ---
DATE OF SERVICE: 12/31/2017 SUBJECTIVE: Feeling better, little bit of cough, no dyspnea, no abdominal pain or diarrhea. No edd tourinary symptoms. OBJECTIVE: VITAL SIGNS: T-max 98.7-100.3, BP 114/70, pulse 110, respirations 14-22, O2 sat 94% on 3 liters. GENERAL: Appears oriented. LUNGS: With fairly clear breath sounds. CARDIOVASCULAR: S1, S2, regular rate. ABDOMEN: Soft and not distended. EXTREMITIES: Moves extremities equally. LABORATORY DATA: White cell count 6.0, hemoglobin 9.8, platelets 225 with 95% neutrophils. ASSESSMENT AND DISCUSSION: Advanced human immunodeficiency virus seropositive status with low CD4 ce ll count, pneumocystis pneumonia, confirmed by pneumocystis PCR from respiratory secretions and cytom egalovirus viremia. The patient is improving steadily but slowly. Eventually transition to oral Bactrim. We will need t o take one double strength 4 times daily and continue the low dose prednisone taper and Valcyte. Aft er discharge week or two after discharge, then start antiretroviral therapy with [facility]. Follow up in the clinic weeks from discharge.
[2018-01-01 04:43] LABS: #Basophils 0.1 thou/uL (0.0-0.2); #Lymphocytes 0.3 thou/uL (1.20-3.40); #Monocytes 0.2 thou/uL (0.11-0.59); #Neutrophils 8.4 thou/uL (1.40-6.50); %Basophils 0.6 % (0.0-1.0); %Eosinophils 0.2 % (0.0-10.0); %Lymphocytes 3.7 % (21.0-51.0); %Monocytes 1.9 % (0.0-10.0); %Neutrophils 93.5 % (42.0-75.0); Hemoglobin 9.9 g/dL (14.0-18.0); Mean Corpuscular HGB CONC 33.5 g/dL (32.0-36.0); Mean Corpuscular Hemoglobin 29.5 pg (27.0-31.0); Mean Corpuscular Volume 88.2 fl (80.0-94.0); Mean Platelet Volume 8.4 fL (7.4-10.4); Platelet Count 214 thou/uL (130-400); RBC Distribution Width 16.3 % (11.5-14.5); Red Blood Cell (RBC) Count 3.35 mill/uL (4.70-6.10)
[2018-01-01 04:58] LABS: Anion Gap 11 mmol/L (10-20); BUN (Urea Nitrogen) 19 mg/dL (8.9-20.6); Calc. Creatinine Clearance 96 mL/min (70-130); Calcium 8.5 mg/dL (7.8-10.44); Carbon Dioxide 25 mmol/L (22-29); Chloride 101 mmol/L (98-107); Estimated GFR-MDRD Greater than 90; Glucose 104 mg/dL (70-105); Sodium 133 mmol/L (136-145)
[2018-01-01] MEDS: Sulfameth/Trimethoprim DS 800-160mg TAB PO SCH ×3 (05:29→18:35)
--- NOTE | 2018-01-01 08:56 | PRG ---
DATE OF SERVICE: 01/01/2018 The patient is doing better. PHYSICAL EXAMINATION: VITAL SIGNS: His O2 sat today was 96% on 3 liters at rest measured by me, temperature 98.6, pulse 11 5, respirations 20, blood pressure 124/77. HEENT: Unremarkable. NECK: No adenopathy or JVD. LUNGS: Clear anteriorly. CARDIOVASCULAR: S1 and S2 regular. ABDOMEN: Soft. EXTREMITIES: No edema. LABORATORY DATA: White blood cell count 9, hematocrit 29.5, platelet count 214. Sodium 133, potassi um 4, chloride 101, CO2 25, BUN 19, creatinine 0.7, glucose 104. ASSESSMENT: 1. Human immunodeficiency virus. 2. Presumed pneumocystis pneumonia. 3. Hypoxemia. PLAN: 1. The patient is currently on Bactrim and steroids. The steroids were intermittently stopped by so meone over the weekend without my knowledge. He definitely needs this until his hypoxemia has resolv ed. 2. Limiting factor keeping him in the hospital right now is his need for oxygen. Hopefully, that wi ll continue to improve. The patient is currently uninsured, so it is unlikely that we will find any company willing to write him oxygen outside the hospital.
[2018-01-01] MEDS: Fluconazole 100 MG TAB PO SCH (08:59)
[2018-01-01] MEDS: Multivitamin W/ Minerals 1 TAB PO SCH (08:59)
[2018-01-01] MEDS: predniSONE 20 MG TAB PO SCH (09:00)
[2018-01-01] MEDS: Azithromycin 250 MG TAB PO SCH (09:00)
[2018-01-01] MEDS: Enoxaparin Sodium 40 MG/0.4 ML SYRINGE SC SCH (09:00)
[2018-01-01] MEDS: guaiFENesin ER 600 MG TAB PO SCH ×2 (09:00→21:09)
--- NOTE | 2018-01-01 17:59 | PDOC.PN ---
- Subjective Encounter Start Date: 01/01/18 Encounter Start Time: 17:45 Subjective: f/u for acute AIDS, PCP PNA and persistent hypoxia on O2 @ 2L/min NC -: Receiving Bactrim, Prednisone, Valcyclovir and Diflucan. No new complaints. - Objective Resuscitation Status: Resuscitation Status FULL:Full Resuscitation MAR Reviewed: Yes Vital Signs & Weight: Vital Signs (12 hours) Temp Pulse Resp BP BP Pulse Ox 01/01/18 15:00 98.6 F 114 H 22 H 104/70 97 01/01/18 14:16 120 H 14 01/01/18 12:00 98.5 F 113 H 22 H 114/69 98 01/01/18 10:39 100 14 01/01/18 08:00 98.6 F 113 H 20 92 L 01/01/18 07:25 98.6 F 115 H 20 124/77 92 L 01/01/18 06:42 110 H 14 Weight Weight 132 lb 11.2 oz I&O: 12/31/17 01/01/18 01/02/18 06:59 06:59 06:59 Intake Total 1968 Output Total 1425 1875 Balance 543 -1875 Result Diagrams: 01/01/18 03:36 01/01/18 03:36 Additional Labs: Microbiology 12/30/17 18:00 Nasal swab Influenza Types A,B Direct EIA - Final 12/23/17 17:30 Nasopharyngeal swab Respiratory Virus Panel (PCR) (HEIDY) - Final 12/23/17 15:15 Nasal swab Influenza Types A,B Direct EIA - Final 12/23/17 13:40 Venous blood - Right Hand Blood Culture - Final NO GROWTH IN 5 DAYS 12/23/17 13:40 Venous blood - Right Arm Blood Culture - Final NO GROWTH IN 5 DAYS 12/23/17 13:40 Serum Cryptococcal Antigen - Final Laboratory Tests 12/23/17 12/23/17 12/24/17 13:40 18:49 02:35 Hgb Neutrophils % Neutrophils % (Manual) Potassium Absolute CD4 Count 6 L HIV-1 Antibody (EIA) Positive A HIV 1&2 Antigen & Ab Reflxed Confirmation H 12/26/17 12/26/17 12/26/17 04:27 04:27 06:35 Hgb 9.4 L Neutrophils % Neutrophils % (Manual) 86 H Potassium 2.1 L* 2.2 L* Absolute CD4 Count HIV-1 Antibody (EIA) HIV 1&2 Antigen & Ab 12/27/17 12/27/17 12/28/17 23:04 23:04 04:10 Hgb 9.6 L Neutrophils % Neutrophils % (Manual) 84 H Potassium 3.2 L 3.3 L Absolute CD4 Count HIV-1 Antibody (EIA) HIV 1&2 Antigen & Ab 12/28/17 01/01/18 04:10 03:36 Hgb 9.8 L Neutrophils % 93.5 H Neutrophils % (Manual) 95 H Potassium Absolute CD4 Count HIV-1 Antibody (EIA) HIV 1&2 Antigen & Ab Phys Exam - Physical Examination Constitutional: NAD HEENT: PERRLA, moist MMs, sclera anicteric, oral pharynx no lesions Neck: no nodes, no JVD, supple, full ROM few scattered wheezes Respiratory: no rales, no rhonchi tachycardic Cardiovascular: no significant murmur, no rub, gallop Gastrointestinal: soft, non-tender, no distention, positive bowel sounds Musculoskeletal: no edema, pulses present Neurological: non-focal, normal sensation, moves all 4 limbs Psychiatric: normal affect, A&O x 3 Skin: no rash, normal turgor, cap refill <2 seconds Dx/Plan (1) AIDS Status: Acute Comment: CD4 count 6, continue supportive mgmt, will need intermediate antiretroviral regimen monitored by ID service (2) Acute respiratory failure with hypoxia Code(s): J96.01 - ACUTE RESPIRATORY FAILURE WITH HYPOXIA Status: Acute Comment: Patient continues to require O2 via NC to keep sats above 90. Home O2 options per CM (3) HIV (human immunodeficiency virus infection) Status: Acute Comment: Antiretroviral therapy intermediate likely with [facility] (4) PCP (pneumocystis carinii pneumonia) Code(s): B59 - PNEUMOCYSTOSIS Status: Acute Qualifiers: Laterality: bilateral Comment: Continue Bactrim, Diflucan and Prednisone (5) Hypokalemia Code(s): E87.6 - HYPOKALEMIA Status: Acute Comment: Improved with KCL supplementation, serial monitoring (6) Tachycardia Code(s): R00.0 - TACHYCARDIA, UNSPECIFIED Status: Acute (7) Anemia with chronic illness Code(s): D63.8 - ANEMIA IN OTHER CHRONIC DISEASES CLASSIFIED ELSEWHERE Status : Chronic Comment: Serial H/H monitoring, no evidence of acute blood loss (8) Protein-calorie malnutrition, moderate Code(s): E44.0 - MODERATE PROTEIN-CALORIE MALNUTRITION Status: Chronic Comment: Continue regular diet with Ensure TID - Plan continue antibiotics, social science professor, respiratory therapy, out of bed/ambulate , DVT proph w/SCDs Stable currently -: Continue Bactrim, Prednisone -: Continue Diflucan and Valcyclovir -: Continue Nutritional support with [facility], Ensure TID -: CM for outpt assistance with coordination for abx, ? O2 supplementation * .
[2018-01-02] MEDS: Sulfameth/Trimethoprim DS 800-160mg TAB PO SCH ×4 (00:08→17:18)
[2018-01-02] MEDS: Multivitamin W/ Minerals 1 TAB PO SCH (09:03)
[2018-01-02] MEDS: Fluconazole 100 MG TAB PO SCH (09:04)
[2018-01-02] MEDS: predniSONE 20 MG TAB PO SCH (09:04)
[2018-01-02] MEDS: Enoxaparin Sodium 40 MG/0.4 ML SYRINGE SC SCH (09:04)
[2018-01-02] MEDS: guaiFENesin ER 600 MG TAB PO SCH ×2 (09:04→21:38)
--- NOTE | 2018-01-02 10:15 | PRG ---
DATE OF SERVICE: 01/02/2018 SUBJECTIVE: The patient is doing much better. SUBJECTIVE: VITAL SIGNS: His O2 sat on 1 liter at the bedside today was 100%. Temperature 97.3, pulse 112, resp irations 18, blood pressure 114/71. HEENT: Unremarkable. NECK: No JVD. LUNGS: Clear without wheezing or rhonchi. CARDIAC: S1 and S2 regular. ABDOMEN: Soft. EXTREMITIES: No edema. ASSESSMENT: 1. Improved pneumocystis pneumonia 2. Human immunodeficiency virus. RECOMMENDATION: He is probably clear to go home if he can ambulate a room air without desaturating. He may take 1-2 more days to get to that point. Antibiotic recommendations outpatient will be per Kyle Puri.
[2018-01-02 14:21] VITALS: BMI 20.1
--- NOTE | 2018-01-02 15:02 | PDOC.PN ---
- Subjective Encounter Start Date: 01/02/18 Encounter Start Time: 15:00 Subjective: f/u for PCP PNA, AIDS and hypoxemia. Overall feels ok. Remains on O2 @ -: 1L/min NC. Ambulating in halls. Tx with Bactrim, Prednisone, Valcyte. -: No new complaints. - Objective Resuscitation Status: Resuscitation Status FULL:Full Resuscitation MAR Reviewed: Yes Vital Signs & Weight: Vital Signs (12 hours) Temp Pulse Resp BP BP Pulse Ox 01/02/18 13:57 105 H 18 93 L 01/02/18 11:39 98.1 F 113 H 18 115/73 94 L 01/02/18 10:21 111 H 20 90 L 01/02/18 08:03 97.3 F L 112 H 18 114/71 96 01/02/18 08:00 97.3 F L 112 H 18 96 01/02/18 06:04 107 H 16 97 01/02/18 04:00 97.6 F 106 H 20 109/72 96 Weight Admit Weight 135 lb Weight 132 lb 11.2 oz I&O: 01/01/18 01/02/18 01/03/18 06:59 06:59 06:59 Intake Total 400 Output Total 1875 1750 Balance -1875 -1350 Result Diagrams: 01/01/18 03:36 01/01/18 03:36 Additional Labs: Microbiology 12/30/17 18:00 Nasal swab Influenza Types A,B Direct EIA - Final 12/23/17 17:30 Nasopharyngeal swab Respiratory Virus Panel (PCR) (HEIDY) - Final 12/23/17 15:15 Nasal swab Influenza Types A,B Direct EIA - Final 12/23/17 13:40 Venous blood - Right Hand Blood Culture - Final NO GROWTH IN 5 DAYS 12/23/17 13:40 Venous blood - Right Arm Blood Culture - Final NO GROWTH IN 5 DAYS 12/23/17 13:40 Serum Cryptococcal Antigen - Final Laboratory Tests 12/23/17 12/23/17 12/24/17 13:40 18:49 02:35 Hgb Neutrophils % Neutrophils % (Manual) Potassium Absolute CD4 Count 6 L HIV-1 Antibody (EIA) Positive A HIV 1&2 Antigen & Ab Reflxed Confirmation H 12/26/17 12/26/17 12/26/17 04:27 04:27 06:35 Hgb 9.4 L Neutrophils % Neutrophils % (Manual) 86 H Potassium 2.1 L* 2.2 L* Absolute CD4 Count HIV-1 Antibody (EIA) HIV 1&2 Antigen & Ab 12/27/17 12/27/17 12/28/17 23:04 23:04 04:10 Hgb 9.6 L Neutrophils % Neutrophils % (Manual) 84 H Potassium 3.2 L 3.3 L Absolute CD4 Count HIV-1 Antibody (EIA) HIV 1&2 Antigen & Ab 12/28/17 01/01/18 04:10 03:36 Hgb 9.8 L Neutrophils % 93.5 H Neutrophils % (Manual) 95 H Potassium Absolute CD4 Count HIV-1 Antibody (EIA) HIV 1&2 Antigen & Ab Phys Exam - Physical Examination Constitutional: NAD HEENT: PERRLA, moist MMs, sclera anicteric, oral pharynx no lesions Neck: no nodes, no JVD, supple, full ROM Respiratory: no wheezing, no rales, no rhonchi, clear to auscultation bilateral Cardiovascular: RRR, no significant murmur, no rub, gallop Gastrointestinal: soft, non-tender, no distention, positive bowel sounds Musculoskeletal: no edema, pulses present Neurological: non-focal, normal sensation, moves all 4 limbs Psychiatric: normal affect, A&O x 3 Skin: no rash, normal turgor, cap refill <2 seconds Dx/Plan (1) AIDS Status: Acute Comment: CD4 count 6, continue supportive mgmt, will need long term antiretroviral regimen monitored by ID service (2) Acute respiratory failure with hypoxia Code(s): J96.01 - ACUTE RESPIRATORY FAILURE WITH HYPOXIA Status: Acute Comment: Patient continues to require O2 via NC to keep sats above 90. Attempt wean off O2 currently @ 1L/min (3) HIV (human immunodeficiency virus infection) Status: Acute Comment: Antiretroviral therapy long term likely with [employer] (4) PCP (pneumocystis carinii pneumonia) Code(s): B59 - PNEUMOCYSTOSIS Status: Acute Qualifiers: Laterality: bilateral Comment: Continue Bactrim and Prednisone, overall improved (5) Hypokalemia Code(s): E87.6 - HYPOKALEMIA Status: Acute Comment: Improved with KCL supplementation, serial monitoring (6) Tachycardia Code(s): R00.0 - TACHYCARDIA, UNSPECIFIED Status: Acute Comment: Persistent , mild elevation (7) Anemia with chronic illness Code(s): D63.8 - ANEMIA IN OTHER CHRONIC DISEASES CLASSIFIED ELSEWHERE Status : Chronic Comment: Serial H/H monitoring, no evidence of acute blood loss (8) Protein-calorie malnutrition, moderate Code(s): E44.0 - MODERATE PROTEIN-CALORIE MALNUTRITION Status: Chronic Comment: Continue regular diet with Ensure TID - Plan continue antibiotics, PT/OT, social work job titles, respiratory therapy, out of bed/ ambulate, DVT proph w/SCDs Stable overall -: Wean O2 supplementation -: Continue Prednisone and Bactrim DS -: D/C Diflucan -: Continue Valcyte * Likely home in am
[2018-01-03] MEDS: Sulfameth/Trimethoprim DS 800-160mg TAB PO SCH ×5 (01:11→23:44)
--- NOTE | 2018-01-03 08:34 | PRG ---
DATE OF SERVICE: 01/03/2018 SUBJECTIVE: The patient desaturated to 85% walking on room air yesterday. He is about 90% on 1 lite r at rest today. He says he feels fine, has no complaints. PHYSICAL EXAMINATION: VITAL SIGNS: Temperature 97.9, pulse 112, respirations 16, blood pressure 113/78. HEENT: Unremarkable. NECK: No JVD. LUNGS: Clear. CARDIAC: S1 and S2 regular. ABDOMEN: Soft. EXTREMITIES: No edema. ASSESSMENT: Human immunodeficiency virus with probable pneumocystis pneumonia. PLAN: He is uninsured, so we are awaiting the resolution of his hypoxemia, which of course is taking a while. I do not see anything to do other than the current steroids and Bactrim as we are doing as he has shown significant improvement on this regimen.
[2018-01-03] MEDS: predniSONE 20 MG TAB PO SCH (10:33)
[2018-01-03] MEDS: Multivitamin W/ Minerals 1 TAB PO SCH (10:33)
[2018-01-03] MEDS: guaiFENesin ER 600 MG TAB PO SCH ×2 (10:33→20:47)
--- NOTE | 2018-01-03 13:31 | PDOC.PN ---
- Subjective Encounter Start Date: 01/03/18 Encounter Start Time: 12:00 Subjective: no sob, feels better - Objective Resuscitation Status: Resuscitation Status FULL:Full Resuscitation MAR Reviewed: Yes Vital Signs & Weight: Vital Signs (12 hours) Temp Pulse Resp BP Pulse Ox 01/03/18 10:29 105 H 16 94 L 01/03/18 07:47 97.9 F 112 H 16 113/78 92 L 01/03/18 06:28 110 H 16 95 01/03/18 04:00 98.7 F 110 H 20 109/67 97 01/03/18 02:08 103 H 16 93 L Weight Admit Weight 135 lb Weight 132 lb 11.2 oz I&O: 01/02/18 01/03/18 01/04/18 06:59 06:59 06:59 Intake Total 400 250 Output Total 1750 1000 Balance -1350 -750 Result Diagrams: 01/01/18 03:36 01/01/18 03:36 Phys Exam - Physical Examination HEENT: PERRLA, moist MMs Neck: no JVD, supple Respiratory: no wheezing rhonchi++ Cardiovascular: RRR, no significant murmur Gastrointestinal: soft, non-tender, positive bowel sounds Musculoskeletal: no edema, pulses present Neurological: non-focal, moves all 4 limbs Psychiatric: normal affect, A&O x 3 Dx/Plan (1) AIDS Status: Acute Comment: CD4 count 6, continue supportive mgmt, will need [facility] antiretroviral regimen monitored by ID service (2) Acute respiratory failure with hypoxia Code(s): J96.01 - ACUTE RESPIRATORY FAILURE WITH HYPOXIA Status: Acute Comment: Patient continues to require O2 via NC to keep sats above 90. Attempt wean off O2 currently @ 1L/min (3) Cytomegalovirus (CMV) viremia Code(s): B25.9 - CYTOMEGALOVIRAL DISEASE, UNSPECIFIED Status: Acute (4) PCP (pneumocystis carinii pneumonia) Code(s): B59 - PNEUMOCYSTOSIS Status: Acute Qualifiers: Laterality: bilateral Comment: Continue Bactrim and Prednisone, overall improved (5) Sepsis Code(s): A41.9 - SEPSIS, UNSPECIFIED ORGANISM Status: Resolved Qualifiers: Sepsis type: sepsis due to unspecified organism Qualified Code(s): A41.9 - Sepsis, unspecified organism (6) Anemia with chronic illness Code(s): D63.8 - ANEMIA IN OTHER CHRONIC DISEASES CLASSIFIED ELSEWHERE Status : Chronic (7) Protein-calorie malnutrition, moderate Code(s): E44.0 - MODERATE PROTEIN-CALORIE MALNUTRITION Status: Chronic Comment: Continue regular diet with Ensure TID - Plan is on bactrim, prednisone for pcp pna -: valcyte for cmv, to amb as tolerated in hallway -: ?zithromax for cd4 prophylaxis -: to start anti hiv meds 2 weeks out discharge -: pt wants to stay with his sister in [place] area, cm working on above * . Review of Systems - Medications/Allergies Allergies/Adverse Reactions: Allergies Allergy/AdvReac Type Severity Reaction Status Date / Time No Known Allergies Allergy Verified 10/14/17 14:52 Medications: Current Medications Acetaminophen (Tylenol) 650 mg PO Q4H PRN PRN Reason: Headache/Fever or Pain Last Admin: 12/31/17 05:32 Dose: 650 mg Al Hydroxide/Mg Hydroxide (Maalox) 30 ml PO Q6H PRN PRN Reason: Heartburn or Indigestion Albuterol/Ipratropium (Duoneb) 3 ml NEB [id number] [facility] Last Admin: 01/03/18 10:29 Dose: 3 ml Guaifenesin (Mucinex) 600 mg PO Q12HR [facility] Last Admin: 01/03/18 10:33 Dose: 600 mg Iron/Minerals/Multivitamins (Theragran M) 1 tab PO DAILY [facility] Last Admin: 01/03/18 10:33 Dose: 1 tab Loperamide HCl (Imodium) 2 mg PO PRN PRN PRN Reason: Diarrhea/Loose Stools Magnesium Hydroxide (Milk Of Magnesium) 30 ml PO DAILYPRN PRN PRN Reason: Constipation Ondansetron HCl (Zofran Odt) 4 mg PO Q6H PRN PRN Reason: Nausea/Vomiting Ondansetron HCl (Zofran) 4 mg IVP Q6H PRN PRN Reason: Nausea/Vomiting Pantoprazole Sodium (Protonix) 40 mg PO DAILY [facility] Last Admin: 01/03/18 10:33 Dose: 40 mg Prednisone (Prednisone) 40 mg PO DAILY [facility] Last Admin: 01/03/18 10:33 Dose: 40 mg Senna (Senokot) 2 tab PO HSPRN PRN PRN Reason: Constipation Sodium Chloride (Flush - Normal Saline) 10 ml IVF Q12HR [facility] Last Admin: 01/03/18 10:34 Dose: 10 ml Sodium Chloride (Flush - Normal Saline) 10 ml IVF PRN PRN PRN Reason: Saline Flush Last Admin: 12/27/17 00:23 Dose: 10 ml Trimethoprim/Sulfamethoxazole (Bactrim Ds) 2 tab PO Q6HR [facility] Last Admin: 01/03/18 11:32 Dose: 2 tab Valganciclovir (Valcyte) 900 mg PO BID-WM [facility] Stop: 01/10/18 17:01 Last Admin: 01/03/18 10:33 Dose: 900 mg Valganciclovir (Valcyte) 900 mg PO DAILY [facility] Stop: 01/26/18 09:01 Zolpidem Tartrate (Ambien) 5 mg PO HSPRN PRN PRN Reason: Insomnia
[2018-01-04] MEDS: Sulfameth/Trimethoprim DS 800-160mg TAB PO SCH ×3 (05:23→17:27)
[2018-01-04] MEDS: guaiFENesin ER 600 MG TAB PO SCH ×2 (08:36→20:12)
[2018-01-04] MEDS: Multivitamin W/ Minerals 1 TAB PO SCH (08:36)
[2018-01-04] MEDS: predniSONE 20 MG TAB PO SCH (08:37)
--- NOTE | 2018-01-04 13:17 | PDOC.PN ---
- Subjective Encounter Start Date: 01/04/18 Encounter Start Time: 13:24 Seen and examined today for AIDs with low CD4 count, CMV, PCP and resolved acute respiratory failure. Patient has no new complaints. Denies pain. No acute events overnight. - Objective Resuscitation Status: Resuscitation Status FULL:Full Resuscitation MAR Reviewed: Yes Vital Signs & Weight: Vital Signs (12 hours) Temp Pulse Resp BP BP Pulse Ox 01/04/18 11:13 98.7 F 84 20 151/84 H 96 01/04/18 10:18 106 H 16 01/04/18 08:00 98.0 F 106 H 20 91 L 01/04/18 06:47 92 L 01/04/18 06:45 113 H 16 01/04/18 03:08 98.0 F 116 H 16 119/84 95 01/04/18 02:54 95 01/04/18 02:27 16 Weight Admit Weight 135 lb Weight 132 lb 11.2 oz I&O: 01/03/18 01/04/18 01/05/18 06:59 06:59 06:59 Intake Total 250 2360 Output Total 1000 2725 Balance -750 -365 Result Diagrams: 01/01/18 03:36 01/01/18 03:36 Phys Exam - Physical Examination Constitutional: NAD HEENT: PERRLA, moist MMs, sclera anicteric Neck: no JVD, supple, full ROM Respiratory: no wheezing, no rales, no rhonchi, clear to auscultation bilateral Cardiovascular: RRR, no significant murmur, no rub Gastrointestinal: soft, non-tender, no distention, positive bowel sounds Musculoskeletal: no edema, pulses present Neurological: non-focal, moves all 4 limbs Psychiatric: normal affect, A&O x 3 Skin: no rash Dx/Plan (1) AIDS Status: Acute Comment: CD4 count 6. (2) Cytomegalovirus (CMV) viremia Code(s): B25.9 - CYTOMEGALOVIRAL DISEASE, UNSPECIFIED Status: Acute (3) Low CD4 cell count determined by flow cytometry Code(s): D72.9 - DISORDER OF WHITE BLOOD CELLS, UNSPECIFIED Status: Acute (4) PCP (pneumocystis carinii pneumonia) Code(s): B59 - PNEUMOCYSTOSIS Status: Acute Qualifiers: Laterality: bilateral Comment: Continue Bactrim and Prednisone, overall improved (5) Protein-calorie malnutrition, moderate Code(s): E44.0 - MODERATE PROTEIN-CALORIE MALNUTRITION Status: Chronic Comment: Continue regular diet; Ensure TID (6) Anemia with chronic illness Code(s): D63.8 - ANEMIA IN OTHER CHRONIC DISEASES CLASSIFIED ELSEWHERE Status : Chronic Comment: Hemoglobin stable. (7) Tachycardia Code(s): R00.0 - TACHYCARDIA, UNSPECIFIED Status: Resolved (8) Sepsis Code(s): A41.9 - SEPSIS, UNSPECIFIED ORGANISM Status: Resolved Qualifiers: Sepsis type: sepsis due to unspecified organism Qualified Code(s): A41.9 - Sepsis, unspecified organism (9) Acute respiratory failure with hypoxia Code(s): J96.01 - ACUTE RESPIRATORY FAILURE WITH HYPOXIA Status: Resolved - Plan cont current plan of care, continue antibiotics, out of bed/ambulate, DVT proph w/heparin Continue ValCYte, DS BActrim and prednisone. CM workiing on placement options. NEeds f/u on outpatient basis w ID re antiretrovirals- Patient would prefer to stay sister in [place]. Review of Systems - Medications/Allergies Allergies/Adverse Reactions: Allergies Allergy/AdvReac Type Severity Reaction Status Date / Time No Known Allergies Allergy Verified 10/14/17 14:52 Medications: Current Medications Acetaminophen (Tylenol) 650 mg PO Q4H PRN PRN Reason: Headache/Fever or Pain Last Admin: 12/31/17 05:32 Dose: 650 mg Al Hydroxide/Mg Hydroxide (Maalox) 30 ml PO Q6H PRN PRN Reason: Heartburn or Indigestion Albuterol/Ipratropium (Duoneb) 3 ml NEB [id number] Last Admin: 01/04/18 10:18 Dose: 3 ml Guaifenesin (Mucinex) 600 mg PO Q12HR [facility] Last Admin: 01/04/18 08:36 Dose: 600 mg Iron/Minerals/Multivitamins (Theragran M) 1 tab PO DAILY [facility] Last Admin: 01/04/18 08:36 Dose: 1 tab Loperamide HCl (Imodium) 2 mg PO PRN PRN PRN Reason: Diarrhea/Loose Stools Magnesium Hydroxide (Milk Of Magnesium) 30 ml PO DAILYPRN PRN PRN Reason: Constipation Ondansetron HCl (Zofran Odt) 4 mg PO Q6H PRN PRN Reason: Nausea/Vomiting Ondansetron HCl (Zofran) 4 mg IVP Q6H PRN PRN Reason: Nausea/Vomiting Pantoprazole Sodium (Protonix) 40 mg PO DAILY [facility] Last Admin: 01/04/18 08:37 Dose: 40 mg Prednisone (Prednisone) 40 mg PO DAILY [facility] Last Admin: 01/04/18 08:37 Dose: 40 mg Senna (Senokot) 2 tab PO HSPRN PRN PRN Reason: Constipation Sodium Chloride (Flush - Normal Saline) 10 ml IVF Q12HR [facility] Last Admin: 01/04/18 08:37 Dose: 10 ml Sodium Chloride (Flush - Normal Saline) 10 ml IVF PRN PRN PRN Reason: Saline Flush Last Admin: 12/27/17 00:23 Dose: 10 ml Trimethoprim/Sulfamethoxazole (Bactrim Ds) 2 tab PO Q6HR [facility] Last Admin: 01/04/18 12:27 Dose: 2 tab [facility]gan[facility]iclovir (Valcyte) 900 [facility] Stop: 01/10/18 17:01 Last Admin: 01/04/18 08:35 Dose: 900 mg Valganciclovir (Valcyte) 900 mg PO DAILY [facility] Stop: 01/26/18 09:01 Zolpidem Tartrate (Ambien) 5 mg PO HSPRN PRN PRN Reason: Insomnia
[2018-01-04] MEDS: Heparin 5,000 UNITS/ML VIAL SC SCH ×2 (15:37→20:12)
--- NOTE | 2018-01-04 16:00 | PRG ---
DATE OF SERVICE: 01/04/2018 SERVICE: Pulmonary Medicine. INTERVAL HISTORY: The patient is doing fine from a breathing standpoint. He is on room air. He denies any chest discomfort, nausea, vomiting, fevers or chills. He is a little tremulous. Outside of that, he has no specific complaints. PHYSICAL EXAMINATION: VITAL SIGNS: Afebrile, pulse 84, blood pressure 151/84, respirations 20, saturation 96% on room air. GENERAL: The patient is awake, alert, no apparent distress. LUNGS: Excellent air entry. There is no prolonged expiratory phase. Crackles are present. No rhonchi or wheezing are appreciated. HEART: Normal rate and regular. ABDOMEN: Soft, nontender, nondistended. Bowel sounds are positive. MUSCULOSKELETAL: No cyanosis or clubbing. No pitting in the bilateral lower extremities. NEUROLOGIC: Grossly nonfocal. LABORATORY DATA: WBC 9.0, hemoglobin 9.9, platelets 214,000. Neutrophils 93%. Basic metabolic profile is essentially unremarkable with potassium that is normal at 4.0. Urinalysis is unremarkable. Urine drug screen is negative. CD4 count is extremely low at 6, HIV is positive. CMV is also abnormal. Hepatitis serologies are nonreactive. Influenza A and B is negative. Respiratory virus panel is unremarkable. Blood cultures x2 and cryptococcal antigen are negative. ASSESSMENT: 1. Acute hypoxic respiratory failure, resolved. 1. Human immunodeficiency virus. 2. Acquired immune deficiency syndrome. 3. Pneumocystis jiroveci pneumonia, based on PCR. PLAN: I will continue antibiotic and steroids. Once he is off of oxygen, he will be stable for transition out of the hospital, but he will need to follow up with Infectious Disease in the outpatient setting to get initiated on antiviral therapy. Pulmonary will continue to follow while he remains in house. [facility]
[2018-01-05] MEDS: Sulfameth/Trimethoprim DS 800-160mg TAB PO SCH ×5 (01:24→23:15)
[2018-01-05] MEDS: Heparin 5,000 UNITS/ML VIAL SC SCH ×3 (09:21→20:02)
[2018-01-05] MEDS: predniSONE 20 MG TAB PO SCH (09:21)
[2018-01-05] MEDS: Multivitamin W/ Minerals 1 TAB PO SCH (09:21)
[2018-01-05] MEDS: guaiFENesin ER 600 MG TAB PO SCH ×2 (09:22→20:02)
--- NOTE | 2018-01-05 13:06 | PRG ---
DATE OF SERVICE: 01/05/2018 SERVICE: Pulmonary Medicine. INTERVAL HISTORY: The patient is doing great from a respiratory standpoint. He is on room air. He denies having any cough or congestion. He is not having fevers any longer. He is really happy with the way things are progressing. PHYSICAL EXAMINATION: VITAL SIGNS: Afebrile, pulse 113, blood pressure 114/80, respirations 12, saturation 95% on room air . GENERAL: The patient is awake, alert, no apparent distress. LUNGS: Decent air entry. Crackles are present, but no prolonged expiratory phase or wheezing is montse ntified. HEART: Normal rate, regular. ABDOMEN: Soft, nontender, nondistended. Bowel sounds are positive. MUSCULOSKELETAL: No cyanosis or clubbing. There is no pitting in the bilateral lower extremities. NEUROLOGIC: Grossly nonfocal. ASSESSMENT: 1. Human immunodeficiency virus. 2. Acquired immune deficiency syndrome. 3. Pneumocystis jiroveci pneumonia. PLAN: The patient is stable for transition out of the hospital at this time. Pulmonary Critical Car e will continue to follow along. He will certainly need to follow up with Dr. Puri in the outpatien t setting to get started on antiretroviral therapy. Pulmonary will continue to follow along if he re scott in-house.
--- NOTE | 2018-01-05 14:44 | PDOC.PN ---
- Subjective Encounter Start Date: 01/05/18 Encounter Start Time: 14:48 pATIENT SEEN AND EXAMINED FOR aCUE rESPIRATOR FAILURE AND NEW aids DIAGNOSIS. HE HAS NO COMPLAINTS TODAY AND IS DOING WELL. No acute events overnight. - Objective Resuscitation Status: Resuscitation Status FULL:Full Resuscitation Vital Signs & Weight: Vital Signs (12 hours) Temp Pulse Resp BP Pulse Ox 01/05/18 13:49 114 H 16 96 01/05/18 12:02 98.6 F 112 H 18 120/74 94 L 01/05/18 09:43 113 H 12 95 01/05/18 08:00 98.6 F 112 H 18 93 L 01/05/18 07:31 98.0 F 113 H 18 114/80 93 L 01/05/18 06:19 110 H 13 97 01/05/18 04:00 97.8 F 110 H 18 118/78 93 L 01/05/18 03:07 96 Weight Admit Weight 135 lb Weight 132 lb 11.2 oz I&O: 01/04/18 01/05/18 01/06/18 06:59 06:59 06:59 Intake Total 2360 1500 360 Output Total 2725 900 300 Balance -365 600 60 Result Diagrams: 01/01/18 03:36 01/01/18 03:36 Additional Labs: Accuchecks 01/05/18 11:05 POC Glucose 128 H Phys Exam - Physical Examination Constitutional: NAD HEENT: PERRLA, moist MMs, sclera anicteric Neck: no JVD, supple, full ROM Respiratory: no wheezing, no rales, no rhonchi, clear to auscultation bilateral Cardiovascular: RRR, no significant murmur, no rub Gastrointestinal: soft, non-tender, no distention, positive bowel sounds Musculoskeletal: no edema, pulses present Neurological: non-focal, moves all 4 limbs Psychiatric: normal affect, A&O x 3 Skin: no rash, normal turgor Dx/Plan (1) AIDS Status: Acute Comment: CD4 count 6. (2) Cytomegalovirus (CMV) viremia Code(s): B25.9 - CYTOMEGALOVIRAL DISEASE, UNSPECIFIED Status: Acute (3) Low CD4 cell count determined by flow cytometry Code(s): D72.9 - DISORDER OF WHITE BLOOD CELLS, UNSPECIFIED Status: Acute (4) PCP (pneumocystis carinii pneumonia) Code(s): B59 - PNEUMOCYSTOSIS Status: Acute Qualifiers: Laterality: bilateral Comment: Continue Bactrim and Prednisone, overall improved (5) Protein-calorie malnutrition, moderate Code(s): E44.0 - MODERATE PROTEIN-CALORIE MALNUTRITION Status: Chronic Comment: Continue regular diet; Ensure TID (6) Anemia with chronic illness Code(s): D63.8 - ANEMIA IN OTHER CHRONIC DISEASES CLASSIFIED ELSEWHERE Status : Chronic Comment: Hemoglobin stable. (7) Tachycardia Code(s): R00.0 - TACHYCARDIA, UNSPECIFIED Status: Acute (8) Sepsis Code(s): A41.9 - SEPSIS, UNSPECIFIED ORGANISM Status: Resolved Qualifiers: Sepsis type: sepsis due to unspecified organism Qualified Code(s): A41.9 - Sepsis, unspecified organism (9) Acute respiratory failure with hypoxia Code(s): J96.01 - ACUTE RESPIRATORY FAILURE WITH HYPOXIA Status: Resolved - Plan cont current plan of care, plan discussed w/ family, continue antibiotics, social economist, respiratory therapy, out of bed/ambulate, DVT proph w/heparin Patient continues to desaturate while ambulating. Will obtain an ABG and assess for home oxygen. Patient is however undocumented so getting home O2 might be challenging. Will f/u with renal case manager. Review of Systems - Medications/Allergies Allergies/Adverse Reactions: Allergies Allergy/AdvReac Type Severity Reaction Status Date / Time No Known Allergies Allergy Verified 10/14/17 14:52 Medications: Current Medications Acetaminophen (Tylenol) 650 mg PO Q4H PRN PRN Reason: Headache/Fever or Pain Last Admin: 12/31/17 05:32 Dose: 650 mg Al Hydroxide/Mg Hydroxide (Maalox) 30 ml PO Q6H PRN PRN Reason: Heartburn or Indigestion Albuterol/Ipratropium (Duoneb) 3 ml NEB [id number] Last Admin: 01/05/18 13:49 Dose: 3 ml Guaifenesin (Mucinex) 600 mg PO Q12HR [facility] Last Admin: 01/05/18 09:22 Dose: 600 mg Heparin Sodium (Porcine) (Heparin) 5,000 units SC TID [facility] Last Admin: 01/05/18 09:21 Dose: 5,000 units Iron/Minerals/Multivitamins (Theragran M) 1 tab PO DAILY [facility] Last Admin: 01/05/18 09:21 Dose: 1 tab Loperamide HCl (Imodium) 2 mg PO PRN PRN PRN Reason: Diarrhea/Loose Stools Magnesium Hydroxide (Milk Of Magnesium) 30 ml PO DAILYPRN PRN PRN Reason: Constipation Ondansetron HCl (Zofran Odt) 4 mg PO Q6H PRN PRN Reason: Nausea/Vomiting Ondansetron HCl (Zofran) 4 mg IVP Q6H PRN PRN Reason: Nausea/Vomiting Pantoprazole Sodium (Protonix) 40 mg PO DAILY [facility] Last Admin: 01/05/18 09:21 Dose: 40 mg Prednisone (Prednisone) 20 mg PO QAM-[facility] Stop: 01/16/18 08:01 Senna (Senokot) 2 tab PO HSPRN PRN PRN Reason: Constipation Sodium Chloride (Flush - Normal Saline) 10 ml IVF Q12HR [facility] Last Admin: 01/05/18 09:22 Dose: 10 ml Sodium Chloride (Flush - Normal Saline) 10 ml IVF PRN PRN PRN Reason: Saline Flush Last Admin: 12/27/17 00:23 Dose: 10 ml Trimethoprim/Sulfamethoxazole (Bactrim Ds) 2 tab PO Q6HR [facility] Last Admin: 01/05/18 12:25 Dose: 2 tab Valganciclovir (Valcyte) 900 mg PO BID-[facility] Stop: 01/10/18 17:01 Last Admin: 01/05/18 09:20 Dose: 900 mg Valganciclovir (Valcyte) 900 mg PO DAILY [facility] Stop: 01/26/18 09:01 Zolpidem Tartrate (Ambien) 5 mg PO HSPRN PRN PRN Reason: Insomnia
--- NOTE | 2018-01-05 22:34 | PRG ---
DATE OF SERVICE: 01/05/2018 SUBJECTIVE: The patient is feeling much improved, cough almost subsided, mild dyspnea. He is not we aring oxygen anymore. PHYSICAL EXAMINATION: VITAL SIGNS: Normal except for slight tachycardia. O2 sats are up to 96% on room air. LUNGS: Symmetrically breath sounds. HEART: S1, S2, regular rate. ABDOMEN: Soft, not distended. EXTREMITIES: Moves all extremities equally. LABORATORY DATA: Not remarkable except for normocytic anemia which is stable. He has been transitio danette to oral Bactrim and oral prednisone being tapered. The dose of Bactrim actually for his weight s hould be one tablet q.6 hours, not 2 tablets. ASSESSMENT AND DISCUSSION: Advanced human immunodeficiency virus infection with low CD4 cell count p neumocystis pneumonia. DISCUSSION: Patient is eligible for discharge planning, I believe tomorrow or Saturday to continue or al Bactrim for a total of 21 days and then transition to suppressive 3 times a week Bactrim dosing. He will need azithromycin once weekly prophylaxis for MAC and to start antiretroviral therapy about a week after discharge.
[2018-01-06] MEDS: Sulfameth/Trimethoprim DS 800-160mg TAB PO SCH ×2 (05:25→12:39)
[2018-01-06] MEDS ORDERED: predniSONE 20 MG TAB PO SCH (08:00)
[2018-01-06] MEDS: guaiFENesin ER 600 MG TAB PO SCH (08:16)
[2018-01-06] MEDS: Multivitamin W/ Minerals 1 TAB PO SCH (08:16)
[2018-01-06] MEDS: Heparin 5,000 UNITS/ML VIAL SC SCH ×2 (08:17→15:15)
[2018-01-06 08:26] LABS: Hemoglobin 12.9 g/dL (14.0-18.0); Mean Corpuscular HGB CONC 33.1 g/dL (32.0-36.0); Mean Corpuscular Hemoglobin 28.9 pg (27.0-31.0); Mean Corpuscular Volume 87.4 fl (80.0-94.0); Mean Platelet Volume 8.7 fL (7.4-10.4); Platelet Count 213 thou/uL (130-400); RBC Distribution Width 16.8 % (11.5-14.5); Red Blood Cell (RBC) Count 4.46 mill/uL (4.70-6.10); White Blood Cell (WBC) Count 3.6 thou/uL (4.8-10.8)
[2018-01-06 08:37] LABS: Anion Gap 13 mmol/L (10-20); BUN (Urea Nitrogen) 29 mg/dL (8.9-20.6); Calc. Creatinine Clearance 84 mL/min (70-130); Calcium 9.5 mg/dL (7.8-10.44); Carbon Dioxide 21 mmol/L (22-29); Chloride 94 mmol/L (98-107); Estimated GFR-MDRD 89; Glucose 99 mg/dL (70-105); Potassium 5.1 mmol/L (3.5-5.1); Sodium 123 mmol/L (136-145)
--- NOTE | 2018-01-06 09:52 | PDOC.PN ---
- Subjective Encounter Start Date: 01/06/18 Encounter Start Time: 09:52 Seen and examined today for AIDs with low CD4 count, CMV, PCP and acute respiratory failure. Patient has no new complaints. Denies pain. No acute events overnight. - Objective Resuscitation Status: Resuscitation Status FULL:Full Resuscitation MAR Reviewed: Yes Vital Signs & Weight: Vital Signs (12 hours) Temp Pulse Resp BP BP Pulse Ox 01/06/18 07:21 97.3 F L 112 H 20 116/85 112 H 01/06/18 05:51 108 H 14 95 01/06/18 04:00 97.8 F 108 H 18 117/71 94 L 01/06/18 02:40 94 L 01/06/18 00:00 98.4 F 112 H 18 112/77 94 L 01/05/18 22:21 115 H 12 Weight Admit Weight 135 lb Weight 132 lb 11.2 oz I&O: 01/05/18 01/06/18 01/07/18 06:59 06:59 06:59 Intake Total 1500 1990 Output Total 900 1350 Balance 600 640 Result Diagrams: 01/06/18 08:03 01/06/18 08:03 Additional Labs: Accuchecks 01/05/18 11:05 POC Glucose 128 H Phys Exam - Physical Examination Constitutional: NAD HEENT: PERRLA, moist MMs, sclera anicteric Neck: supple, full ROM Respiratory: no wheezing, no rales, no rhonchi, clear to auscultation bilateral Cardiovascular: RRR, no significant murmur, no rub Gastrointestinal: soft, non-tender, no distention, positive bowel sounds Musculoskeletal: no edema, pulses present Neurological: non-focal, moves all 4 limbs Psychiatric: normal affect Dx/Plan (1) Acute respiratory failure with hypoxia Code(s): J96.01 - ACUTE RESPIRATORY FAILURE WITH HYPOXIA Status: Acute Comment: Continues to require supplemental O2. Desaturated to 77% today on ambulation. Will arrange for home O2. (2) AIDS Status: Acute Comment: CD4 count 6. (3) Cytomegalovirus (CMV) viremia Code(s): B25.9 - CYTOMEGALOVIRAL DISEASE, UNSPECIFIED Status: Acute (4) Low CD4 cell count determined by flow cytometry Code(s): D72.9 - DISORDER OF WHITE BLOOD CELLS, UNSPECIFIED Status: Acute (5) PCP (pneumocystis carinii pneumonia) Code(s): B59 - PNEUMOCYSTOSIS Status: Acute Qualifiers: Laterality: bilateral Comment: Continue Bactrim and Prednisone, overall improved (6) Protein-calorie malnutrition, moderate Code(s): E44.0 - MODERATE PROTEIN-CALORIE MALNUTRITION Status: Chronic Comment: Continue regular diet; Ensure TID (7) Anemia with chronic illness Code(s): D63.8 - ANEMIA IN OTHER CHRONIC DISEASES CLASSIFIED ELSEWHERE Status : Chronic Comment: Hemoglobin stable. (8) Tachycardia Code(s): R00.0 - TACHYCARDIA, UNSPECIFIED Status: Acute (9) Sepsis Code(s): A41.9 - SEPSIS, UNSPECIFIED ORGANISM Status: Resolved Qualifiers: Sepsis type: sepsis due to unspecified organism Qualified Code(s): A41.9 - Sepsis, unspecified organism - Plan cont current plan of care, plan discussed w/ family, continue antibiotics, respiratory therapy, out of bed/ambulate, DVT proph w/heparin f/u Repeat CXR Consult CM and respiratory therapist to arrange for home O2. Continue antibiotics, steroids. Will f/u with ID in [place] once home O2 established and discharged. Review of Systems - Medications/Allergies Allergies/Adverse Reactions: Allergies Allergy/AdvReac Type Severity Reaction Status Date / Time No Known Allergies Allergy Verified 10/14/17 14:52 Medications: Current Medications Acetaminophen (Tylenol) 650 mg PO Q4H PRN PRN Reason: Headache/Fever or Pain Last Admin: 12/31/17 05:32 Dose: 650 mg Al Hydroxide/Mg Hydroxide (Maalox) 30 ml PO Q6H PRN PRN Reason: Heartburn or Indigestion Albuterol/Ipratropium (Duoneb) 3 ml NEB Q4H PRN PRN Reason: SOB Guaifenesin (Mucinex) 600 mg PO Q12HR [facility] Last Admin: 01/06/18 08:16 Dose: 600 mg Heparin Sodium (Porcine) (Heparin) 5,000 units SC TID [facility] Last Admin: 01/06/18 08:17 Dose: 5,000 units Iron/Minerals/Multivitamins (Theragran M) 1 tab PO DAILY [facility] Last Admin: 01/06/18 08:16 Dose: 1 tab Loperamide HCl (Imodium) 2 mg PO PRN PRN PRN Reason: Diarrhea/Loose Stools Magnesium Hydroxide (Milk Of Magnesium) 30 ml PO DAILYPRN PRN PRN Reason: Constipation Ondansetron HCl (Zofran Odt) 4 mg PO Q6H PRN PRN Reason: Nausea/Vomiting Ondansetron HCl (Zofran) 4 mg IVP Q6H PRN PRN Reason: Nausea/Vomiting Pantoprazole Sodium (Protonix) 40 mg PO DAILY [facility] Last Admin: 01/06/18 08:16 Dose: 40 mg Prednisone (Prednisone) 20 mg PO QAM[facility] Stop: 01/16/18 08:01 Last Admin: 01/06/18 08:16 Dose: 20 mg Senna (Senokot) 2 tab PO HSPRN PRN PRN Reason: Constipation Sodium Chloride (Flush - Normal Saline) 10 ml IVF Q12HR [facility] Last Admin: 01/06/18 08:18 Dose: 10 ml Sodium Chloride (Flush - Normal Saline) 10 ml IVF PRN PRN PRN Reason: Saline Flush Last Admin: 12/27/17 00:23 Dose: 10 ml Trimethoprim/Sulfamethoxazole (Bactrim Ds) 2 tab PO Q6HR [facility] Last Admin: 01/06/18 05:25 Dose: 2 tab Valganciclovir (Valcyte) 900 mg PO BID-[facility] Stop: 01/10/18 17:01 Last Admin: 01/06/18 08:16 Dose: 900 mg Valganciclovir (Valcyte) 900 mg PO DAILY [facility] Stop: 01/26/18 09:01 Zolpidem Tartrate (Ambien) 5 mg PO HSPRN PRN PRN Reason: Insomnia
--- NOTE | 2018-01-06 10:39 | RAD ---
ONE VIEW CHEST: Comparison: 12-24-17, 12-29-17 FINDINGS: Normal cardiac silhouette. Pulmonary vessels and hilum are normal. Costophrenic angles are clear. Guido g volumes are diminished, likely due to poor inspiratory effort. Overall improved aeration when luis red to the examination from 12-29-17. Residual interstitial opacities do remain in the lung bases, lef t greater than right. IMPRESSION: Persistent interstitial opacity lung bases. POS: [facility]
--- NOTE | 2018-01-06 11:37 | PRG ---
DATE OF SERVICE: 01/06/2018 OBJECTIVE: Mr. Land is afebrile, heart rate 108-112, respiratory rate is 20, blood pressure 116/ 85. LUNGS: Clear. HEART: Regular rhythm. S1 and S2 are normal. ABDOMEN: Soft. Chest radiograph still shows interstitial infiltrates bilaterally. IMPRESSION: Pneumocystis pneumonia in a patient with human immunodeficiency virus. PLAN: Continue antimicrobial therapy and steroids.
[2018-01-06] MEDS ORDERED: Sulfameth/Trimethoprim DS 800-160mg TAB PO SCH (15:00)
[2018-01-06 16:53] VITALS: BP 125/84; TEMP 97.4
--- NOTE | 2018-01-06 23:18 | DIS ---
DATE OF ADMISSION: 12/23/2017 DATE OF DISCHARGE: 01/06/2018 DISCHARGE DIAGNOSES: Acute respiratory failure with hypoxia, a cytomegalovirus viremia, low CD4 cell count, pneumocystis carinii pneumonia, moderate protein-calorie malnutrition, anemia of chronic illn ess, bradycardia, sepsis. HISTORY OF PRESENT ILLNESS/HOSPITAL COURSE: Mr. Emery Shannon is a 52-year-old male. He is Pashto speaking only, who came to the emergency room for increasing shortness of breath progre ssing for the last week. He also had a cough and scant amount of sputum during this period. In ranjeet tion, he had a fever and was unable to speak in full sentences. He has also progressively worsening fatigue. At emergency room, oxygen saturation was in the 40s in which supplementation improved to 74 %. He was quickly placed on BiPAP. He was also tachycardic to the 150s and had a temperature of 102 . He had no chest pain, but reports discomfort on taking deep breaths. Imaging revealed bibasilar p neumonia, he was admitted for ICU for hypoxic respiratory failure. He was started on empiric antibio tic with cefepime, Levaquin, and vancomycin. A respiratory virus panel was checked and also placed o n IV fluids, Solu-Medrol. He also had HIV screening, which turned out to be positive and he had a lo w CD4 cell count, further investigation revealed CMV and PCP. He was started on steroids, double-str ength Bactrim, azithromycin for CMV prophylaxis and Valcyte. He was followed by Pulmonary Service an d Infectious Disease while in hospital. He continued to require oxygen while on admission with oxyge n saturation radiates into the mid 70s on ambulation. Home oxygen was arranged before he was dischar . Also before discharge, it was reviewed by Dr. Puri and recommended continuing oral Bactrim for a total of 21 days and then we transitioned to suppressive 3 times a week Bactrim dosing. He is also to be on azithromycin once weekly for MAC prophylaxis and also to start antiretroviral therapy about a week of discharge. Patient decided to move in with his sister in [place], [place]. An outpatient I D followup was arranged before he was discharged home. DISCHARGE MEDICATIONS: Azithromycin 500 mg q.7 days; Mucinex 600 mg q.12 hours; pantoprazole 40 mg d aily; prednisone 20 mg for 2 days, then 10 mg for 2 days, and then stop; Bactrim double-strength 1 ta b every 2 days; Valcyte 900 mg twice a day with meals, to complete for 2 weeks and then Valcyte once a day. PHYSICAL EXAMINATION: He was examined on the day of discharge. For details, refer to today's [facility] notes. LABORATORY DATA: WBC 3.6, hemoglobin 12.9, platelet count 213. Sodium 123, potassium 5.1, chloride 94, carbon dioxide 21, anion gap 13, BUN of 29, creatinine 0.9, calcium 9.5, glucose 99. Absolute CD 4 count 6. IMAGING: Chest x-ray as described in HPI, which shows diffuse bilateral infiltrates. CONSULTS: Pulmonary, Infectious Disease. CONDITION AT DISCHARGE: Stable and improved. PROCEDURES: None. DIET: Regular. CARE GOALS: To follow up with Infectious Disease on outpatient basis. He is to start antiretroviral s about a week after discharge. ACTIVITY: Resume as tolerated. Discharge time 55 minutes including chart review and documentation.
== END 2018-01-06 17:30 | disposition home or self-care (01) | DRG 974 ==
LOC: ERS 13:19 → IMCU/EMU 16:20 → 3SE 12-26 15:19 → IMCU/EMU 12-27 23:36 → T4-B 12-29 13:51
PROVIDERS: ADMIT Internal Medicine; ATTEND Internal Medicine
DX: B20 Human immunodeficiency virus [HIV] disease (principal); A41.9 Sepsis, unspecified organism; J96.01 Acute respiratory failure with hypoxia; B59 Pneumocystosis; R65.20 Severe sepsis without septic shock; E87.2 Acidosis; E87.1 Hypo-osmolality and hyponatremia; E44.0 Moderate protein-calorie malnutrition; B25.9 Cytomegaloviral disease, unspecified; E86.0 Dehydration; Z68.20 Body mass index [BMI] 20.0-20.9, adult; D63.8 Anemia in other chronic diseases classified elsewhere; E87.6 Hypokalemia; E88.09 Other disorders of plasma-protein metabolism, not elsewhere classified
CPT/HCPCS: 36415; 36416; 71045; 71046; 80048; 80053; 80074; 80202; 80306; 81001; 82805; 83605; 83615; 83690; 83735; 84100; 85025; 85027; 85048; 86361; 86701; 86702; 87040; 87385; 87389; 87497; 87633; 87804; 87899; 88312; 89220; 93005; 93306; 94640; 94660; 96361; 96365; 99292; A4216; J1644; J1650; J1956; J2543; J2920; J3370; J3490; J7050; J7070; J7506; J7620; J8499; S0028